=== PATIENT | female | born 1930 | race Caucasian/White ===

== ENCOUNTER 2017-08-18 13:50 | Emergency (ER) | payer OTHER, SELFPAY ==
[~2017-08-18] VITALS: Ht 162.6 cm; Wt 78.9 kg
[~2017-08-18 13:50] MED LIST: ALBU90OI; ALBU90OI INH; ALBU90OI6 INH; ALEN70; ASCO500; ASPI81EC; Atrovent Inha12.9 GM INH; B Complex1 EAC2 PO; BENTYL 10 MG PO; BENTYL PO; BENTYL10 MG PO; BUPR100; BUPR100 PO; BUPR100ER PO; CALCAVITD PO; CALCAVITDA; CALMAGZIN; CALPRATL; CETI10 PO; CIPR500 PO; CIPRO500 MG PO; CLIN150 PO; CODLIVC PO; CYCL0.05OP; CYCL0.05OP BOTHEYES; Calicum 500+D1 EACH PO; Cipro500 MG PO; Cortisporin Ey7.5 ML BOTHEYES; DESO.05TCA TOP; DEX; DICY20 PO; DILTIAZEM; DIPATR; DIPH50; DIPH50 PO; DOCU100 PO; Dicyclomine HCl10 MG PO; Diflucan100 MG PO; ERGO400; ESTRTP VAG; FISH1000 PO; FLUC200 PO; FURO20 PO; FURO40 PO; Flagyl500 MG PO; GARLIC; GUAI100SY; GUAI600T33 PO; GUAPSEER; HYDACE5 PO; HYDGUAL120 PO; HYDR1TAB94 PO; HYOS.125; INDA2.5; INDA2.5 PO; INDAPAMIDE 1.25 MG PO; INDAPAMIDE PO; IPRA.03NI; IPRA.06NI; Indapamide1.25 MG PO; Indapamide2.5 MG PO; KETO10 PO; KLOR-CON; LAVAP17G PO; LEVFLO500; LEVFLO500 PO; LEVOTHYROXINE 0.1 MG; LEVSOD100; LEVSOD100 PO; LIDOCAINE-HYDROC7 GM PR; LISI10; LISI5 PO; LOPE2C PO; MECL12.5 PO; MECL25; MECL25 PO; MECLIZINE; METHYLCELLULOSE; METR500 PO; METRIBP; METRIBP PO; MOMENI; MSM PO; MSM1000 MG PO; MUCINEX DM; MULVITB&C PO; Milk Of Ma400 MG/5 M PO; NAPR250; NASAREL; NASONEX; Norco 5-325 Ta1 EACH PO; ONDA4 PO; ONDA4ODT MM; ONDA8ODT MM; OXYC10TA19 PO; POTA10T PO; POTCHL10ER PO; PRAM.125 PO; PRAM.5 PO; PROCODE120 PO; PROM12.5S; PROM25; PROM25 PO; PROM25S; PROM25S PR; Pataday2.5 ML BOTHEYES; Percocet 5-3251 EACH PO; Phenergan25 M1 PO; RALO60; RANI150; RANI150 PO; RECLAST; RECLAST IV; REQUIP PO; RESTASIS; ROPI.25 PO; ROPI1 PO; RXCLIN PO; RXONDA4ODT MM; TOCO400; TOCO400 PO; TRAM50 PO; VALS80; VICODIN 5-3001 EACH PO; VITAMIN A; VITAMIN B; Vitamin B Comple1 EA PO; XARELTO10 MG PO; [UNRECOGNIZED DRUG - CODE]; [UNRECOGNIZED DRUG - OTHER]; [UNRECOGNIZED DRUG - OTHER]; [UNRECOGNIZED DRUG - OTHER]; [UNRECOGNIZED DRUG - OTHER]
[2017-08-18 14:29] LABS: BASOPHILS ABSOLUTE AUTO 0.03 K/mm3 (0.00-0.23); BASOPHILS PERCENT AUTO 1 % (0-2); EOSINOPHILS ABSOLUTE AUTO 0.04 K/mm3 (0.00-0.68); EOSINOPHILS PERCENT AUTO 1 % (0-6); Hemoglobin 14.2 g/dL (11.5-16.0); IMMATURE GRAN ABSOLUTE AUTO 0.01 K/mm3 (0.00-0.10); IMMATURE GRAN PERCENT AUTO 0 % (0-1); LYMPHOCYTES ABSOLUTE AUTO 0.92 K/mm3 (0.84-5.20); LYMPHOCYTES PERCENT AUTO 26 % (21-46); MONOCYTES ABSOLUTE AUTO 0.19 K/mm3 (0.16-1.47); MONOCYTES PERCENT AUTO 5 % (4-13); Mean Corpuscular HGB 31.8 pg (26.0-34.0); Mean Corpuscular HGB Conc 33.8 g/dL (31.5-36.5); Mean Corpuscular Volume 94 fL (80-100); Mean Platelet Volume 10.5 fL (9.1-12.4); NEUTROPHILS ABSOLUTE AUTO 2.35 K/mm3 (1.96-9.15); NEUTROPHILS PERCENT AUTO 66 % (41-73); Platelet Count 221 K/mm3 (150-400); RDW Coefficient Variation 14.9 % (11.7-14.2); Red Blood Cell Count 4.46 M/mm3 (3.80-5.20); White Blood Cell Count 3.54 K/mm3 (4.00-11.30)
[2017-08-18 14:52] LABS: Alanine Aminotransfer (ALT/SGP 23 U/L (12-78); Albumin, Blood 3.7 g/dL (3.4-5.0); Alk Phos 88 U/L (50-136); Anion Gap 10 mmol/L (6-16); Aspartate Aminotrans (AST/SGOT 21 U/L (12-37); Bilirubin, Total 0.5 mg/dL (0.1-1.0); Blood Urea Nitrogen 18 mg/dL (8-24); Bun/Creatinine Ratio 22.3 (12.0-20.0); CO2, Blood 25 mmol/L (21-32); Calcium, Blood 8.8 mg/dL (8.5-10.1); Chloride, Blood 108 mmol/L (98-108); Creatinine, Blood 0.81 mg/dL (0.40-1.00); Globulin, Blood 3.7 g/dL (2.2-4.0); Glomerular Filtration Rate >60 (60-); Glucose, Blood 91 mg/dL (70-99); Potassium, Blood 3.7 mmol/L (3.5-5.5); Sodium, Blood 143 mmol/L (136-145); Total Protein, Blood 7.4 g/dL (6.4-8.2)
[2017-08-18] MEDS ORDERED: POTA10T PO (15:10)
[2017-08-18] MEDS ORDERED: BUPR100 PO (15:10)
[2017-08-18] MEDS ORDERED: BENTYL10 MG (15:12)
[2017-08-18] MEDS ORDERED: PRAM.5 PO (15:14)
[2017-08-18] MEDS ORDERED: Zofran Odt4 MG PO (15:15)
[2017-08-18] MEDS ORDERED: PROM25S PR (15:16)
[2017-08-18] MEDS ORDERED: XARELTO10 MG PO (15:26)
[2017-08-18] MEDS ORDERED: Flonase 0.05% N16 GM (15:26)
[2017-08-18] MEDS ORDERED: RANI150 PO (15:27)
[2017-08-18] MEDS ORDERED: CYCL0.05OP (15:27)
[2017-08-18] MEDS ORDERED: Cipro500 MG PO (15:58)
[2017-08-18] MEDS ORDERED: Loperamide2 MG PO (15:58)
[2017-08-19] MEDS ORDERED: Flagyl500 MG PO (20:59)
[2017-11-13] MEDS ORDERED: Pepcid40 MG PO (11:00)
[2018-03-03] MEDS ORDERED: BUPR100 PO (10:53)
[2018-03-03] MEDS ORDERED: PRAM.5 PO ×2 (10:56)
[2018-05-09] MEDS ORDERED: EYE VITAMIN PO (10:23)
[2018-05-09] MEDS ORDERED: PROM25 PO (10:23)
[2018-05-09] MEDS ORDERED: SUCRETS SORE THR2 MG PO (10:24)
[2018-05-09] MEDS ORDERED: HYDR1TAB94 PO (10:24)
[2018-05-18] MEDS ORDERED: Zantac150 MG PO (07:06)
[2018-05-25] MEDS ORDERED: Bentyl20 MG PO (06:46)
[2018-05-25] MEDS ORDERED: BUPR100 PO (06:47)
== END 2017-08-18 17:30 | disposition home or self-care (01) ==
LOC: ER 13:50
PROVIDERS: Emergency Medicine
DX: K57.92 Diverticulitis of intestine, part unspecified, without perforation or abscess without bleeding (principal); Z88.8 Allergy status to other drugs, medicaments and biological substances; Z88.0 Allergy status to penicillin; I10 Essential (primary) hypertension; Z88.1 Allergy status to other antibiotic agents; Z88.2 Allergy status to sulfonamides; Z91.040 Latex allergy status; Z91.013 Allergy to seafood; Z79.899 Other long term (current) drug therapy
CPT/HCPCS: 80053; 83690; 85025; 96361; 96365; 96367; 96375; 99283; J0744; J0780; J7030

== ENCOUNTER 2017-08-19 17:14 | Emergency (ER) | payer OTHER, SELFPAY ==
[~2017-08-19] VITALS: Ht 162.6 cm; Wt 79.4 kg
[~2017-08-19 17:14] MED LIST changes: +BENTYL10 MG; +Flonase 0.05% N16 GM; +Loperamide2 MG PO; +Zofran Odt4 MG PO
[2017-08-19 17:54] LABS: BASOPHILS ABSOLUTE AUTO 0.02 K/mm3 (0.00-0.23); BASOPHILS PERCENT AUTO 1 % (0-2); EOSINOPHILS PERCENT AUTO 2 % (0-6); Hematocrit 39.4 % (33.0-51.0); Hemoglobin 13.2 g/dL (11.5-16.0); IMMATURE GRAN ABSOLUTE AUTO 0.01 K/mm3 (0.00-0.10); IMMATURE GRAN PERCENT AUTO 0 % (0-1); LYMPHOCYTES ABSOLUTE AUTO 2.01 K/mm3 (0.84-5.20); LYMPHOCYTES PERCENT AUTO 48 % (21-46); MONOCYTES ABSOLUTE AUTO 0.44 K/mm3 (0.16-1.47); MONOCYTES PERCENT AUTO 11 % (4-13); Mean Corpuscular HGB 31.9 pg (26.0-34.0); Mean Corpuscular HGB Conc 33.5 g/dL (31.5-36.5); Mean Corpuscular Volume 95 fL (80-100); Mean Platelet Volume 10.2 fL (9.1-12.4); NEUTROPHILS ABSOLUTE AUTO 1.61 K/mm3 (1.96-9.15); NEUTROPHILS PERCENT AUTO 38 % (41-73); Platelet Count 221 K/mm3 (150-400); RDW Coefficient Variation 15.3 % (11.7-14.2); RDW Standard Deviation 53.2 fL (35.1-46.3); Red Blood Cell Count 4.14 M/mm3 (3.80-5.20); White Blood Cell Count 4.19 K/mm3 (4.00-11.30)
[2017-08-19 18:19] LABS: Alanine Aminotransfer (ALT/SGP 22 U/L (12-78); Albumin, Blood 3.2 g/dL (3.4-5.0); Albumin/Globulin Ratio 0.9 (0.8-1.8); Alk Phos 76 U/L (50-136); Anion Gap 10 mmol/L (6-16); Aspartate Aminotrans (AST/SGOT 23 U/L (12-37); Bilirubin, Total 0.4 mg/dL (0.1-1.0); Blood Urea Nitrogen 18 mg/dL (8-24); Bun/Creatinine Ratio 19.7 (12.0-20.0); CO2, Blood 23 mmol/L (21-32); Chloride, Blood 110 mmol/L (98-108); Creatinine, Blood 0.92 mg/dL (0.40-1.00); Globulin, Blood 3.7 g/dL (2.2-4.0); Glomerular Filtration Rate >60 (60-); Glucose, Blood 84 mg/dL (70-99); Sodium, Blood 143 mmol/L (136-145); Total Protein, Blood 6.9 g/dL (6.4-8.2)
[2017-08-19] MEDS ORDERED: Flagyl500 MG PO (20:59)
[2017-11-13] MEDS ORDERED: Pepcid40 MG PO (11:00)
[2018-03-03] MEDS ORDERED: BUPR100 PO (10:53)
[2018-03-03] MEDS ORDERED: PRAM.5 PO ×2 (10:56)
[2018-05-09] MEDS ORDERED: PROM25 PO (10:23)
[2018-05-09] MEDS ORDERED: EYE VITAMIN PO (10:23)
[2018-05-09] MEDS ORDERED: SUCRETS SORE THR2 MG PO (10:24)
[2018-05-09] MEDS ORDERED: HYDR1TAB94 PO (10:24)
[2018-05-18] MEDS ORDERED: Zantac150 MG PO (07:06)
[2018-05-25] MEDS ORDERED: Bentyl20 MG PO (06:46)
[2018-05-25] MEDS ORDERED: BUPR100 PO (06:47)
== END 2017-08-19 21:05 | disposition home or self-care (01) ==
LOC: ER 17:14
PROVIDERS: Physician Assistant
DX: K57.92 Diverticulitis of intestine, part unspecified, without perforation or abscess without bleeding (principal); E87.6 Hypokalemia; I10 Essential (primary) hypertension; Z88.1 Allergy status to other antibiotic agents; Z88.0 Allergy status to penicillin; Z88.2 Allergy status to sulfonamides; Z88.6 Allergy status to analgesic agent; Z88.8 Allergy status to other drugs, medicaments and biological substances; Z91.048 Other nonmedicinal substance allergy status; Z91.013 Allergy to seafood; Z79.899 Other long term (current) drug therapy; Z90.710 Acquired absence of both cervix and uterus; Z90.49 Acquired absence of other specified parts of digestive tract
CPT/HCPCS: 36415; 80053; 85025; 96365; 96366; 99283; J7030

== ENCOUNTER 2017-12-21 20:05 | Emergency (ER) | payer OTHER ==
[~2017-12-21] VITALS: Ht 160 cm; Wt 77.6 kg
[~2017-12-21 20:05] MED LIST changes: -Atrovent Inha12.9 GM INH; +IPRAOI INH; +Pepcid40 MG PO
[2017-12-21 21:16] LABS: BASOPHILS ABSOLUTE AUTO 0.04 K/mm3 (0.00-0.23); BASOPHILS PERCENT AUTO 1 % (0-2); EOSINOPHILS ABSOLUTE AUTO 0.03 K/mm3 (0.00-0.68); EOSINOPHILS PERCENT AUTO 1 % (0-6); Hematocrit 38.4 % (33.0-51.0); Hemoglobin 12.9 g/dL (11.5-16.0); IMMATURE GRAN ABSOLUTE AUTO 0.01 K/mm3 (0.00-0.10); IMMATURE GRAN PERCENT AUTO 0 % (0-1); LYMPHOCYTES ABSOLUTE AUTO 1.06 K/mm3 (0.84-5.20); LYMPHOCYTES PERCENT AUTO 25 % (21-46); MONOCYTES ABSOLUTE AUTO 0.63 K/mm3 (0.16-1.47); MONOCYTES PERCENT AUTO 15 % (4-13); Mean Corpuscular HGB 32.2 pg (26.0-34.0); Mean Corpuscular HGB Conc 33.6 g/dL (31.5-36.5); Mean Corpuscular Volume 96 fL (80-100); Mean Platelet Volume 9.9 fL (9.1-12.4); NEUTROPHILS ABSOLUTE AUTO 2.54 K/mm3 (1.96-9.15); NEUTROPHILS PERCENT AUTO 59 % (41-73); Platelet Count 242 K/mm3 (150-400); RDW Coefficient Variation 15.9 % (11.7-14.2); RDW Standard Deviation 56.4 fL (35.1-46.3); Red Blood Cell Count 4.01 M/mm3 (3.80-5.20); White Blood Cell Count 4.31 K/mm3 (4.00-11.30)
[2017-12-21 21:35] LABS: Alanine Aminotransfer (ALT/SGP 23 U/L (12-78); Albumin, Blood 3.1 g/dL (3.4-5.0); Albumin/Globulin Ratio 0.8 (0.8-1.8); Alk Phos 71 U/L (50-136); Anion Gap 8 mmol/L (6-16); Aspartate Aminotrans (AST/SGOT 23 U/L (12-37); Bilirubin, Total 0.4 mg/dL (0.1-1.0); Blood Urea Nitrogen 14 mg/dL (8-24); Bun/Creatinine Ratio 20.5 (12.0-20.0); CO2, Blood 27 mmol/L (21-32); Calcium, Blood 8.4 mg/dL (8.5-10.1); Chloride, Blood 109 mmol/L (98-108); Creatinine, Blood 0.68 mg/dL (0.40-1.00); Globulin, Blood 3.9 g/dL (2.2-4.0); Glomerular Filtration Rate >60 (60-); Glucose, Blood 102 mg/dL (70-99); Potassium, Blood 3.4 mmol/L (3.5-5.5); Sodium, Blood 144 mmol/L (136-145)
[2017-12-21] MEDS ORDERED: Cipro250 MG PO (22:45)
[2017-12-21] MEDS ORDERED: Flagyl500 MG PO (22:45)
== END 2017-12-21 23:17 | disposition home or self-care (01) ==
LOC: ER 20:05
PROVIDERS: Emergency Medicine
DX: K52.9 Noninfective gastroenteritis and colitis, unspecified (principal); I10 Essential (primary) hypertension; Z88.1 Allergy status to other antibiotic agents; Z88.0 Allergy status to penicillin; Z88.2 Allergy status to sulfonamides; Z88.6 Allergy status to analgesic agent; Z91.040 Latex allergy status; Z88.8 Allergy status to other drugs, medicaments and biological substances; Z91.013 Allergy to seafood; Z79.899 Other long term (current) drug therapy
CPT/HCPCS: 36415; 74177; 80053; 83690; 85025; 96360; 96361; 99284; J7120; Q9967

== ENCOUNTER 2017-12-24 09:58 | Inpatient (IN) | payer OTHER ==
[~2017-12-24] VITALS: Ht 160 cm; Wt 75.8 kg
[~2017-12-24 09:58] MED LIST changes: +Atrovent Inha12.9 GM INH; +Cipro250 MG PO; -IPRAOI INH
[2017-12-24] MEDS ORDERED: Indapamide2.5 MG PO (10:25)
[2017-12-24] MEDS ORDERED: FURO20 PO (10:26)
[2017-12-24] MEDS ORDERED: HYDR1TAB94 PO (10:27)
[2017-12-24] MEDS ORDERED: POTCHL10ER PO (10:28)
[2017-12-24] MEDS ORDERED: ROPI.25 PO (10:29)
[2017-12-24] MEDS ORDERED: MECL12.5 PO (10:30)
[2017-12-24] MEDS ORDERED: PROM25 PO (10:31)
[2017-12-24] MEDS ORDERED: CYCL0.05OP BOTHEYES (10:32)
[2017-12-24] MEDS ORDERED: Vitamin B Comple1 EA PO (10:33)
[2017-12-24] MEDS ORDERED: Vitamin E400 UNI4 PO (10:33)
[2017-12-24] MEDS ORDERED: MSM1000 MG PO (10:33)
[2017-12-24 11:07] LABS: BASOPHILS ABSOLUTE AUTO 0.03 K/mm3 (0.00-0.23); BASOPHILS PERCENT AUTO 1 % (0-2); EOSINOPHILS ABSOLUTE AUTO 0.02 K/mm3 (0.00-0.68); EOSINOPHILS PERCENT AUTO 1 % (0-6); Hematocrit 44.7 % (33.0-51.0); Hemoglobin 15.1 g/dL (11.5-16.0); IMMATURE GRAN ABSOLUTE AUTO 0.01 K/mm3 (0.00-0.10); IMMATURE GRAN PERCENT AUTO 0 % (0-1); LYMPHOCYTES ABSOLUTE AUTO 0.54 K/mm3 (0.84-5.20); LYMPHOCYTES PERCENT AUTO 19 % (21-46); MONOCYTES ABSOLUTE AUTO 0.45 K/mm3 (0.16-1.47); MONOCYTES PERCENT AUTO 16 % (4-13); Mean Corpuscular HGB 32.6 pg (26.0-34.0); Mean Corpuscular HGB Conc 33.8 g/dL (31.5-36.5); Mean Corpuscular Volume 97 fL (80-100); NEUTROPHILS ABSOLUTE AUTO 1.85 K/mm3 (1.96-9.15); NEUTROPHILS PERCENT AUTO 64 % (41-73); Platelet Count 276 K/mm3 (150-400); RDW Standard Deviation 57.3 fL (35.1-46.3); Red Blood Cell Count 4.63 M/mm3 (3.80-5.20)
[2017-12-24 11:21] LABS: Anion Gap 8 mmol/L (6-16); Blood Urea Nitrogen 16 mg/dL (8-24); Bun/Creatinine Ratio 20.3 (12.0-20.0); CO2, Blood 27 mmol/L (21-32); Calcium, Blood 9.3 mg/dL (8.5-10.1); Chloride, Blood 107 mmol/L (98-108); Creatinine, Blood 0.79 mg/dL (0.40-1.00); Glomerular Filtration Rate >60 (60-); Glucose, Blood 110 mg/dL (70-99); Potassium, Blood 4.1 mmol/L (3.5-5.5); Sodium, Blood 142 mmol/L (136-145)
[2017-12-24 12:22] LABS: Campylobacter Sp Not Detected (NOT DETECT); Enteroaggregative E. coli-EAEC Not Detected (NOT DETECT); Enterotoxigenic E. coli-ETEC Not Detected (NOT DETECT); Plesiomonas Shigelloides Not Detected (NOT DETECT); Salmonella Sp Not Detected (NOT DETECT); Vibrio Cholerae Not Detected (NOT DETECT); Vibrio Sp Not Detected (NOT DETECT); Yersinia Enterocolitica Not Detected (NOT DETECT)
[2017-12-24 12:23] LABS: Adenovirus F 40/41 Not Detected (NOT DETECT); Astrovirus Not Detected (NOT DETECT); Cryptosporidium Not Detected (NOT DETECT); Cyclospora Cayetanensis Not Detected (NOT DETECT); E. Coli O157 Not Detected (NOT DETECT); Entamoeba Histolytica Not Detected (NOT DETECT); Enteropathogenic E. coli-EPEC Not Detected (NOT DETECT); Giardia Lamblia Not Detected (NOT DETECT); Norovirus GI/GII Not Detected (NOT DETECT); Rotavirus A Not Detected (NOT DETECT); Sapovirus Not Detected (NOT DETECT); Shiga Toxin-prod E. coli-STEC Not Detected (NOT DETECT); Shigella/Enteroin E. coli-EIEC Not Detected (NOT DETECT)
[2017-12-25 04:33] LABS: Bilirubin, Urine Neg (Neg); Blood, Urine Neg (Neg); Glucose Qualitative, Urine Neg (Neg); Ketones, Urine Neg (Neg); Leukocyte Esterase, Urine 3+ (Neg); Nitrite, Urine Neg (Neg); Protein, Urine Neg (Neg); Urobilinogen, Urine NORM (Normal)
[2017-12-25 04:48] LABS: Appearance, Urine Hazy (Clear); Color, Urine Yellow (P-Yellow)
[2017-12-25 04:49] LABS: Bacteria Few /hpf; Red Blood Cells, Urine Not Seen /hpf (0-2); Squamous Epithelial Cells Few /hpf (Few); White Blood Cells, Urine 25-50 /hpf (0-5)
[2017-12-25 05:16] LABS: Hematocrit 36.4 % (33.0-51.0); Hemoglobin 12.1 g/dL (11.5-16.0); Mean Corpuscular HGB 32.9 pg (26.0-34.0); Mean Corpuscular HGB Conc 33.2 g/dL (31.5-36.5); Mean Corpuscular Volume 99 fL (80-100); Mean Platelet Volume 10.1 fL (9.1-12.4); Platelet Count 216 K/mm3 (150-400); RDW Coefficient Variation 16.2 % (11.7-14.2); Red Blood Cell Count 3.68 M/mm3 (3.80-5.20); White Blood Cell Count 3.31 K/mm3 (4.00-11.30)
[2017-12-25 05:38] LABS: Alanine Aminotransfer (ALT/SGP 24 U/L (12-78); Albumin, Blood 2.6 g/dL (3.4-5.0); Albumin/Globulin Ratio 0.8 (0.8-1.8); Alk Phos 54 U/L (50-136); Anion Gap 7 mmol/L (6-16); Aspartate Aminotrans (AST/SGOT 27 U/L (12-37); Bilirubin, Total 0.4 mg/dL (0.1-1.0); Blood Urea Nitrogen 10 mg/dL (8-24); Bun/Creatinine Ratio 14.2 (12.0-20.0); CO2, Blood 24 mmol/L (21-32); Calcium, Blood 7.5 mg/dL (8.5-10.1); Chloride, Blood 113 mmol/L (98-108); Creatinine, Blood 0.71 mg/dL (0.40-1.00); Globulin, Blood 3.2 g/dL (2.2-4.0); Glomerular Filtration Rate >60 (60-); Glucose, Blood 88 mg/dL (70-99); Potassium, Blood 3.5 mmol/L (3.5-5.5); Sodium, Blood 144 mmol/L (136-145); Total Protein, Blood 5.8 g/dL (6.4-8.2)
[2017-12-25 05:49] LABS: BASOPHILS ABSOLUTE MAN 0.03 K/mm3 (0.00-0.23); BASOPHILS PERCENT MAN 1 % (0-2); EOSINOPHILS ABSOLUTE MAN 0.03 K/mm3 (0.00-0.68); EOSINOPHILS PERCENT MAN 1 % (0-6); LYMPHOCYTES % ATYPICAL MANUAL 4 % (0-0); LYMPHOCYTES ABSOLUTE MAN 1.72 K/mm3 (0.84-5.20); LYMPHOCYTES PERCENT MAN 48 % (21-46); MONOCYTES ABSOLUTE MAN 0.19 K/mm3 (0.16-1.47); MONOCYTES PERCENT MAN 6 % (4-13); NEUTROPHILS ABSOLUTE MAN 1.32 K/mm3 (1.96-9.15); SEG NEUTROPHILS PERCENT MAN 40 % (41-73); TOTAL CELLS COUNTED 100
[2017-12-26 05:27] LABS: BASOPHILS ABSOLUTE AUTO 0.02 K/mm3 (0.00-0.23); BASOPHILS PERCENT AUTO 1 % (0-2); EOSINOPHILS ABSOLUTE AUTO 0.07 K/mm3 (0.00-0.68); EOSINOPHILS PERCENT AUTO 2 % (0-6); Hematocrit 35.9 % (33.0-51.0); Hemoglobin 11.9 g/dL (11.5-16.0); IMMATURE GRAN ABSOLUTE AUTO 0.01 K/mm3 (0.00-0.10); IMMATURE GRAN PERCENT AUTO 0 % (0-1); LYMPHOCYTES ABSOLUTE AUTO 1.95 K/mm3 (0.84-5.20); LYMPHOCYTES PERCENT AUTO 45 % (21-46); MONOCYTES ABSOLUTE AUTO 0.46 K/mm3 (0.16-1.47); MONOCYTES PERCENT AUTO 11 % (4-13); Mean Corpuscular HGB Conc 33.1 g/dL (31.5-36.5); Mean Corpuscular Volume 99 fL (80-100); Mean Platelet Volume 10.2 fL (9.1-12.4); NEUTROPHILS ABSOLUTE AUTO 1.79 K/mm3 (1.96-9.15); NEUTROPHILS PERCENT AUTO 42 % (41-73); Platelet Count 232 K/mm3 (150-400); RDW Coefficient Variation 16.1 % (11.7-14.2); RDW Standard Deviation 58.4 fL (35.1-46.3); Red Blood Cell Count 3.61 M/mm3 (3.80-5.20)
[2017-12-26 05:48] LABS: Alanine Aminotransfer (ALT/SGP 24 U/L (12-78); Albumin, Blood 2.6 g/dL (3.4-5.0); Albumin/Globulin Ratio 0.8 (0.8-1.8); Alk Phos 54 U/L (50-136); Anion Gap 6 mmol/L (6-16); Aspartate Aminotrans (AST/SGOT 23 U/L (12-37); Bilirubin, Total 0.2 mg/dL (0.1-1.0); Blood Urea Nitrogen 7 mg/dL (8-24); CO2, Blood 25 mmol/L (21-32); Calcium, Blood 7.4 mg/dL (8.5-10.1); Chloride, Blood 117 mmol/L (98-108); Creatinine, Blood 0.64 mg/dL (0.40-1.00); Globulin, Blood 3.1 g/dL (2.2-4.0); Glomerular Filtration Rate >60 (60-); Glucose, Blood 106 mg/dL (70-99); Magnesium, Blood 1.9 mg/dL (1.6-2.4); Potassium, Blood 3.4 mmol/L (3.5-5.5); Sodium, Blood 148 mmol/L (136-145); Total Protein, Blood 5.7 g/dL (6.4-8.2)
[2017-12-27 05:12] LABS: BASOPHILS ABSOLUTE AUTO 0.05 K/mm3 (0.00-0.23); BASOPHILS PERCENT AUTO 1 % (0-2); EOSINOPHILS PERCENT AUTO 3 % (0-6); Hemoglobin 12.4 g/dL (11.5-16.0); IMMATURE GRAN PERCENT AUTO 0 % (0-1); LYMPHOCYTES ABSOLUTE AUTO 1.95 K/mm3 (0.84-5.20); LYMPHOCYTES PERCENT AUTO 48 % (21-46); MONOCYTES PERCENT AUTO 12 % (4-13); Mean Corpuscular HGB 32.8 pg (26.0-34.0); Mean Corpuscular HGB Conc 33.5 g/dL (31.5-36.5); Mean Corpuscular Volume 98 fL (80-100); Mean Platelet Volume 10.3 fL (9.1-12.4); NEUTROPHILS ABSOLUTE AUTO 1.47 K/mm3 (1.96-9.15); NEUTROPHILS PERCENT AUTO 36 % (41-73); Platelet Count 248 K/mm3 (150-400); RDW Coefficient Variation 15.9 % (11.7-14.2); RDW Standard Deviation 57.4 fL (35.1-46.3); Red Blood Cell Count 3.78 M/mm3 (3.80-5.20); White Blood Cell Count 4.07 K/mm3 (4.00-11.30)
[2017-12-27 05:34] LABS: Alanine Aminotransfer (ALT/SGP 24 U/L (12-78); Albumin, Blood 2.8 g/dL (3.4-5.0); Albumin/Globulin Ratio 0.8 (0.8-1.8); Alk Phos 58 U/L (50-136); Anion Gap 7 mmol/L (6-16); Aspartate Aminotrans (AST/SGOT 23 U/L (12-37); Bilirubin, Total 0.4 mg/dL (0.1-1.0); Blood Urea Nitrogen 8 mg/dL (8-24); Bun/Creatinine Ratio 13.3 (12.0-20.0); CO2, Blood 25 mmol/L (21-32); Chloride, Blood 114 mmol/L (98-108); Globulin, Blood 3.6 g/dL (2.2-4.0); Glomerular Filtration Rate >60 (60-); Glucose, Blood 81 mg/dL (70-99); Potassium, Blood 3.3 mmol/L (3.5-5.5); Sodium, Blood 146 mmol/L (136-145); Total Protein, Blood 6.4 g/dL (6.4-8.2)
[2017-12-28 05:04] LABS: Hematocrit 36.2 % (33.0-51.0); Hemoglobin 12.4 g/dL (11.5-16.0); Mean Corpuscular HGB 32.9 pg (26.0-34.0); Mean Corpuscular HGB Conc 34.3 g/dL (31.5-36.5); Mean Corpuscular Volume 96 fL (80-100); Mean Platelet Volume 10.2 fL (9.1-12.4); Platelet Count 246 K/mm3 (150-400); RDW Standard Deviation 56.5 fL (35.1-46.3); Red Blood Cell Count 3.77 M/mm3 (3.80-5.20); White Blood Cell Count 4.26 K/mm3 (4.00-11.30)
[2017-12-28 05:36] LABS: Albumin, Blood 2.7 g/dL (3.4-5.0); Anion Gap 6 mmol/L (6-16); Blood Urea Nitrogen 15 mg/dL (8-24); Bun/Creatinine Ratio 20.9 (12.0-20.0); CO2, Blood 24 mmol/L (21-32); Calcium, Blood 8.2 mg/dL (8.5-10.1); Chloride, Blood 114 mmol/L (98-108); Creatinine, Blood 0.72 mg/dL (0.40-1.00); Glomerular Filtration Rate >60 (60-); Glucose, Blood 96 mg/dL (70-99); Phosphorus, Blood 3.1 mg/dL (2.5-4.9); Potassium, Blood 3.8 mmol/L (3.5-5.5); Sodium, Blood 144 mmol/L (136-145)
[2017-12-29 08:40] LABS: Albumin, Blood 2.9 g/dL (3.4-5.0); Anion Gap 8 mmol/L (6-16); Blood Urea Nitrogen 13 mg/dL (8-24); Bun/Creatinine Ratio 19.3 (12.0-20.0); CO2, Blood 24 mmol/L (21-32); Calcium, Blood 8.6 mg/dL (8.5-10.1); Chloride, Blood 111 mmol/L (98-108); Creatinine, Blood 0.67 mg/dL (0.40-1.00); Glomerular Filtration Rate >60 (60-); Glucose, Blood 89 mg/dL (70-99); Phosphorus, Blood 3.3 mg/dL (2.5-4.9); Sodium, Blood 143 mmol/L (136-145)
[2017-12-30] MEDS ORDERED: VANCOMYCIN125 MG/2.5 PO (11:28)
[2017-12-30] MEDS ORDERED: SACC250C PO (11:28)
== END 2017-12-30 18:15 | disposition home or self-care (01) | DRG 372 ==
LOC: ER 09:58 → MEDS 13:06
PROVIDERS: Emergency Medicine; Internal Medicine
DX: A04.72 Enterocolitis due to Clostridium difficile, not specified as recurrent (principal); E87.0 Hyperosmolality and hypernatremia; E87.6 Hypokalemia; I10 Essential (primary) hypertension; J44.9 Chronic obstructive pulmonary disease, unspecified; E03.9 Hypothyroidism, unspecified; K21.9 Gastro-esophageal reflux disease without esophagitis; M19.90 Unspecified osteoarthritis, unspecified site; M81.0 Age-related osteoporosis without current pathological fracture; Z88.2 Allergy status to sulfonamides; Z88.8 Allergy status to other drugs, medicaments and biological substances; Z88.6 Allergy status to analgesic agent; Z88.1 Allergy status to other antibiotic agents; Z88.3 Allergy status to other anti-infective agents; Z88.0 Allergy status to penicillin; Z91.013 Allergy to seafood; Z87.891 Personal history of nicotine dependence
CPT/HCPCS: 36415; 80048; 80053; 80069; 81001; 83690; 83735; 85025; 85027; 87086; 87507; 94660; 94760; 94762; 96365; 96367; 99283; J0744; J1644; J2405; J7030

== ENCOUNTER 2018-03-18 12:06 | Emergency (ER) | payer OTHER ==
[~2018-03-18] VITALS: Ht 167.6 cm; Wt 79.4 kg
[~2018-03-18 12:06] MED LIST changes: +SACC250C PO; +VANCOMYCIN125 MG/2.5 PO; +Vitamin E400 UNI4 PO
[2018-03-18] MEDS ORDERED: Flagyl500 MG PO (13:14)
[2018-03-18] MEDS ORDERED: Cipro500 MG PO (13:14)
== END 2018-03-18 13:25 | disposition home or self-care (01) ==
LOC: ER 12:06
DX: K57.92 Diverticulitis of intestine, part unspecified, without perforation or abscess without bleeding (principal); Z88.0 Allergy status to penicillin; Z88.2 Allergy status to sulfonamides; Z88.8 Allergy status to other drugs, medicaments and biological substances; Z91.040 Latex allergy status; Z91.013 Allergy to seafood; Z79.899 Other long term (current) drug therapy; I10 Essential (primary) hypertension; E03.9 Hypothyroidism, unspecified
CPT/HCPCS: 99284

== ENCOUNTER 2018-05-25 19:57 | Inpatient (IN) | payer OTHER ==
[~2018-05-25] VITALS: Ht 160 cm; Wt 68.2 kg
[~2018-05-25 19:57] MED LIST changes: +Bentyl20 MG PO; +EYE VITAMIN PO; +SUCRETS SORE THR2 MG PO; +Zantac150 MG PO
[2018-05-26 10:08] LABS: BASOPHILS ABSOLUTE AUTO 0.02 K/mm3 (0.00-0.23); BASOPHILS PERCENT AUTO 0 % (0-2); EOSINOPHILS ABSOLUTE AUTO 0.26 K/mm3 (0.00-0.68); EOSINOPHILS PERCENT AUTO 5 % (0-6); Hematocrit 29.8 % (33.0-51.0); Hemoglobin 9.7 g/dL (11.5-16.0); IMMATURE GRAN ABSOLUTE AUTO 0.01 K/mm3 (0.00-0.10); IMMATURE GRAN PERCENT AUTO 0 % (0-1); LYMPHOCYTES ABSOLUTE AUTO 0.82 K/mm3 (0.84-5.20); LYMPHOCYTES PERCENT AUTO 15 % (21-46); MONOCYTES ABSOLUTE AUTO 0.64 K/mm3 (0.16-1.47); MONOCYTES PERCENT AUTO 12 % (4-13); Mean Corpuscular HGB 33.3 pg (26.0-34.0); Mean Corpuscular HGB Conc 32.6 g/dL (31.5-36.5); Mean Corpuscular Volume 102 fL (80-100); Mean Platelet Volume 10.5 fL (9.1-12.4); NEUTROPHILS PERCENT AUTO 67 % (41-73); Platelet Count 266 K/mm3 (150-400); RDW Coefficient Variation 14.7 % (11.7-14.2); RDW Standard Deviation 55.8 fL (35.1-46.3); Red Blood Cell Count 2.91 M/mm3 (3.80-5.20); White Blood Cell Count 5.35 K/mm3 (4.00-11.30)
[2018-05-26 12:01] LABS: Anion Gap 10 mmol/L (6-16); Blood Urea Nitrogen 13 mg/dL (8-24); Bun/Creatinine Ratio 17.1 (12.0-20.0); CO2, Blood 25 mmol/L (21-32); Calcium, Blood 7.9 mg/dL (8.5-10.1); Chloride, Blood 109 mmol/L (98-108); Creatinine, Blood 0.76 mg/dL (0.40-1.00); Glomerular Filtration Rate >60 (60-); Glucose, Blood 81 mg/dL (70-99); Potassium, Blood 3.8 mmol/L (3.5-5.5); Sodium, Blood 144 mmol/L (136-145)
[2018-05-26] MEDS ORDERED: PRAM.5 PO (17:24)
[2018-05-26] MEDS ORDERED: SENN187 PO (17:26)
[2018-05-26] MEDS ORDERED: Milk Of Ma400 MG/5 M (17:27)
[2018-05-27 05:32] LABS: BASOPHILS ABSOLUTE AUTO 0.03 K/mm3 (0.00-0.23); BASOPHILS PERCENT AUTO 1 % (0-2); EOSINOPHILS ABSOLUTE AUTO 0.13 K/mm3 (0.00-0.68); EOSINOPHILS PERCENT AUTO 2 % (0-6); Hematocrit 36.8 % (33.0-51.0); IMMATURE GRAN ABSOLUTE AUTO 0.02 K/mm3 (0.00-0.10); IMMATURE GRAN PERCENT AUTO 0 % (0-1); LYMPHOCYTES PERCENT AUTO 16 % (21-46); MONOCYTES ABSOLUTE AUTO 0.64 K/mm3 (0.16-1.47); MONOCYTES PERCENT AUTO 11 % (4-13); Mean Corpuscular HGB 33.5 pg (26.0-34.0); Mean Corpuscular HGB Conc 32.6 g/dL (31.5-36.5); Mean Corpuscular Volume 103 fL (80-100); Mean Platelet Volume 10.4 fL (9.1-12.4); NEUTROPHILS ABSOLUTE AUTO 4.29 K/mm3 (1.96-9.15); NEUTROPHILS PERCENT AUTO 70 % (41-73); Platelet Count 287 K/mm3 (150-400); RDW Coefficient Variation 14.7 % (11.7-14.2); RDW Standard Deviation 56.2 fL (35.1-46.3); Red Blood Cell Count 3.58 M/mm3 (3.80-5.20); White Blood Cell Count 6.11 K/mm3 (4.00-11.30)
[2018-05-27 06:08] LABS: Anion Gap 10 mmol/L (6-16); Blood Urea Nitrogen 10 mg/dL (8-24); Bun/Creatinine Ratio 13.3 (12.0-20.0); CO2, Blood 25 mmol/L (21-32); Calcium, Blood 7.6 mg/dL (8.5-10.1); Chloride, Blood 107 mmol/L (98-108); Creatinine, Blood 0.75 mg/dL (0.40-1.00); Glomerular Filtration Rate >60 (60-); Glucose, Blood 75 mg/dL (70-99); Potassium, Blood 3.6 mmol/L (3.5-5.5); Sodium, Blood 142 mmol/L (136-145)
[2018-05-28 05:25] LABS: BASOPHILS ABSOLUTE AUTO 0.04 K/mm3 (0.00-0.23); BASOPHILS PERCENT AUTO 1 % (0-2); EOSINOPHILS ABSOLUTE AUTO 0.36 K/mm3 (0.00-0.68); EOSINOPHILS PERCENT AUTO 5 % (0-6); Hematocrit 33.9 % (33.0-51.0); Hemoglobin 11.4 g/dL (11.5-16.0); IMMATURE GRAN ABSOLUTE AUTO 0.04 K/mm3 (0.00-0.10); IMMATURE GRAN PERCENT AUTO 1 % (0-1); LYMPHOCYTES ABSOLUTE AUTO 1.11 K/mm3 (0.84-5.20); LYMPHOCYTES PERCENT AUTO 16 % (21-46); MONOCYTES ABSOLUTE AUTO 0.82 K/mm3 (0.16-1.47); MONOCYTES PERCENT AUTO 12 % (4-13); Mean Corpuscular HGB 33.1 pg (26.0-34.0); Mean Corpuscular HGB Conc 33.6 g/dL (31.5-36.5); Mean Platelet Volume 10.4 fL (9.1-12.4); NEUTROPHILS ABSOLUTE AUTO 4.77 K/mm3 (1.96-9.15); NEUTROPHILS PERCENT AUTO 67 % (41-73); Platelet Count 262 K/mm3 (150-400); RDW Coefficient Variation 14.4 % (11.7-14.2); RDW Standard Deviation 52.4 fL (35.1-46.3); Red Blood Cell Count 3.44 M/mm3 (3.80-5.20); White Blood Cell Count 7.14 K/mm3 (4.00-11.30)
[2018-05-28 05:26] LABS: Mean Corpuscular Volume 99 fL (80-100)
[2018-05-28 05:52] LABS: Alanine Aminotransfer (ALT/SGP 14 U/L (12-78); Albumin, Blood 1.7 g/dL (3.4-5.0); Albumin/Globulin Ratio 0.5 (0.8-1.8); Alk Phos 49 U/L (50-136); Anion Gap 7 mmol/L (6-16); Aspartate Aminotrans (AST/SGOT 12 U/L (12-37); Blood Urea Nitrogen 15 mg/dL (8-24); Bun/Creatinine Ratio 24.8 (12.0-20.0); CO2, Blood 28 mmol/L (21-32); Calcium, Blood 7.4 mg/dL (8.5-10.1); Chloride, Blood 104 mmol/L (98-108); Creatinine, Blood 0.61 mg/dL (0.40-1.00); Globulin, Blood 3.4 g/dL (2.2-4.0); Glomerular Filtration Rate >60 (60-); Glucose, Blood 132 mg/dL (70-99); Magnesium, Blood 2.4 mg/dL (1.6-2.4); Phosphorus, Blood 2.6 mg/dL (2.5-4.9); Potassium, Blood 3.4 mmol/L (3.5-5.5); Sodium, Blood 139 mmol/L (136-145); Total Protein, Blood 5.1 g/dL (6.4-8.2)
[2018-05-28 05:54] LABS: Bilirubin, Total 0.3 mg/dL (0.1-1.0)
[2018-05-29 06:03] LABS: BASOPHILS ABSOLUTE AUTO 0.04 K/mm3 (0.00-0.23); BASOPHILS PERCENT AUTO 1 % (0-2); EOSINOPHILS ABSOLUTE AUTO 0.42 K/mm3 (0.00-0.68); EOSINOPHILS PERCENT AUTO 7 % (0-6); Hematocrit 37.8 % (33.0-51.0); Hemoglobin 12.7 g/dL (11.5-16.0); IMMATURE GRAN ABSOLUTE AUTO 0.04 K/mm3 (0.00-0.10); IMMATURE GRAN PERCENT AUTO 1 % (0-1); LYMPHOCYTES PERCENT AUTO 21 % (21-46); MONOCYTES ABSOLUTE AUTO 0.69 K/mm3 (0.16-1.47); MONOCYTES PERCENT AUTO 11 % (4-13); Mean Corpuscular HGB 32.5 pg (26.0-34.0); Mean Corpuscular HGB Conc 33.6 g/dL (31.5-36.5); Mean Corpuscular Volume 97 fL (80-100); Mean Platelet Volume 10.1 fL (9.1-12.4); NEUTROPHILS ABSOLUTE AUTO 3.65 K/mm3 (1.96-9.15); NEUTROPHILS PERCENT AUTO 59 % (41-73); Platelet Count 315 K/mm3 (150-400); RDW Standard Deviation 50.1 fL (35.1-46.3); Red Blood Cell Count 3.91 M/mm3 (3.80-5.20); White Blood Cell Count 6.14 K/mm3 (4.00-11.30)
[2018-05-29 06:21] LABS: Anion Gap 9 mmol/L (6-16); Blood Urea Nitrogen 15 mg/dL (8-24); Bun/Creatinine Ratio 27.5 (12.0-20.0); CO2, Blood 28 mmol/L (21-32); Calcium, Blood 7.9 mg/dL (8.5-10.1); Chloride, Blood 104 mmol/L (98-108); Creatinine, Blood 0.55 mg/dL (0.40-1.00); Glomerular Filtration Rate >60 (60-); Glucose, Blood 106 mg/dL (70-99); Magnesium, Blood 2.5 mg/dL (1.6-2.4); Phosphorus, Blood 3.3 mg/dL (2.5-4.9); Potassium, Blood 3.6 mmol/L (3.5-5.5); Sodium, Blood 141 mmol/L (136-145)
[2018-05-30 07:29] LABS: Anion Gap 8 mmol/L (6-16); Blood Urea Nitrogen 15 mg/dL (8-24); CO2, Blood 29 mmol/L (21-32); Calcium, Blood 7.9 mg/dL (8.5-10.1); Chloride, Blood 103 mmol/L (98-108); Creatinine, Blood 0.63 mg/dL (0.40-1.00); Glomerular Filtration Rate >60 (60-); Glucose, Blood 118 mg/dL (70-99); Magnesium, Blood 2.6 mg/dL (1.6-2.4); Phosphorus, Blood 2.5 mg/dL (2.5-4.9); Potassium, Blood 3.4 mmol/L (3.5-5.5); Sodium, Blood 140 mmol/L (136-145)
[2018-05-30 22:18] LABS: Source, Urine Catheter
[2018-05-30 22:21] LABS: Appearance, Urine Hazy (Clear); Bilirubin, Urine Neg (Neg); Blood, Urine Neg (Neg); Color, Urine Yellow (P-Yellow); Glucose Qualitative, Urine Neg (Neg); Ketones, Urine Neg (Neg); Leukocyte Esterase, Urine Neg (Neg); Nitrite, Urine Neg (Neg); Protein, Urine 1+ (Neg); Urobilinogen, Urine NORM (Normal)
[2018-05-30 22:30] LABS: Amorphous Light (0-Heavy); Bacteria Mod /hpf; Red Blood Cells, Urine 0-2 /hpf (0-2); Squamous Epithelial Cells Rare /hpf (Few)
[2018-05-31 08:01] LABS: BASOPHILS ABSOLUTE AUTO 0.06 K/mm3 (0.00-0.23); BASOPHILS PERCENT AUTO 1 % (0-2); EOSINOPHILS PERCENT AUTO 7 % (0-6); Hemoglobin 11.6 g/dL (11.5-16.0); IMMATURE GRAN ABSOLUTE AUTO 0.03 K/mm3 (0.00-0.10); IMMATURE GRAN PERCENT AUTO 1 % (0-1); LYMPHOCYTES ABSOLUTE AUTO 1.26 K/mm3 (0.84-5.20); LYMPHOCYTES PERCENT AUTO 22 % (21-46); MONOCYTES ABSOLUTE AUTO 0.75 K/mm3 (0.16-1.47); MONOCYTES PERCENT AUTO 13 % (4-13); Mean Corpuscular HGB 32.7 pg (26.0-34.0); Mean Corpuscular HGB Conc 33.1 g/dL (31.5-36.5); Mean Corpuscular Volume 99 fL (80-100); NEUTROPHILS ABSOLUTE AUTO 3.13 K/mm3 (1.96-9.15); NEUTROPHILS PERCENT AUTO 56 % (41-73); Platelet Count 336 K/mm3 (150-400); RDW Coefficient Variation 14.2 % (11.7-14.2); RDW Standard Deviation 51.5 fL (35.1-46.3); Red Blood Cell Count 3.55 M/mm3 (3.80-5.20); White Blood Cell Count 5.63 K/mm3 (4.00-11.30)
[2018-05-31 08:29] LABS: Anion Gap 4 mmol/L (6-16); Blood Urea Nitrogen 17 mg/dL (8-24); Bun/Creatinine Ratio 29.9 (12.0-20.0); CO2, Blood 32 mmol/L (21-32); Calcium, Blood 7.8 mg/dL (8.5-10.1); Chloride, Blood 104 mmol/L (98-108); Creatinine, Blood 0.57 mg/dL (0.40-1.00); Glomerular Filtration Rate >60 (60-); Glucose, Blood 109 mg/dL (70-99); Sodium, Blood 140 mmol/L (136-145)
[2018-05-31 08:30] LABS: Potassium, Blood 5.5 mmol/L (3.5-5.5)
[2018-06-01 04:26] LABS: BASOPHILS ABSOLUTE AUTO 0.08 K/mm3 (0.00-0.23); BASOPHILS PERCENT AUTO 1 % (0-2); EOSINOPHILS ABSOLUTE AUTO 0.66 K/mm3 (0.00-0.68); EOSINOPHILS PERCENT AUTO 9 % (0-6); Hemoglobin 11.9 g/dL (11.5-16.0); IMMATURE GRAN ABSOLUTE AUTO 0.05 K/mm3 (0.00-0.10); IMMATURE GRAN PERCENT AUTO 1 % (0-1); LYMPHOCYTES PERCENT AUTO 29 % (21-46); MONOCYTES ABSOLUTE AUTO 0.96 K/mm3 (0.16-1.47); MONOCYTES PERCENT AUTO 13 % (4-13); Mean Corpuscular HGB 33.3 pg (26.0-34.0); Mean Corpuscular HGB Conc 33.1 g/dL (31.5-36.5); Mean Corpuscular Volume 101 fL (80-100); Mean Platelet Volume 9.8 fL (9.1-12.4); NEUTROPHILS ABSOLUTE AUTO 3.42 K/mm3 (1.96-9.15); NEUTROPHILS PERCENT AUTO 47 % (41-73); Platelet Count 327 K/mm3 (150-400); RDW Coefficient Variation 13.9 % (11.7-14.2); RDW Standard Deviation 51.8 fL (35.1-46.3); Red Blood Cell Count 3.57 M/mm3 (3.80-5.20); White Blood Cell Count 7.27 K/mm3 (4.00-11.30)
[2018-06-01 04:45] LABS: Anion Gap 7 mmol/L (6-16); Blood Urea Nitrogen 21 mg/dL (8-24); Bun/Creatinine Ratio 36.6 (12.0-20.0); CO2, Blood 33 mmol/L (21-32); Calcium, Blood 7.5 mg/dL (8.5-10.1); Chloride, Blood 105 mmol/L (98-108); Creatinine, Blood 0.57 mg/dL (0.40-1.00); Glomerular Filtration Rate >60 (60-); Glucose, Blood 107 mg/dL (70-99); Potassium, Blood 3.3 mmol/L (3.5-5.5); Sodium, Blood 145 mmol/L (136-145); Triglycerides 143 mg/dL (30-160)
[2018-06-01 10:40] LABS: International Normalized Ratio 0.92; Prothrombin Time Results 9.5 Sec (9.7-11.5)
[2018-06-02 06:45] LABS: BASOPHILS ABSOLUTE AUTO 0.08 K/mm3 (0.00-0.23); BASOPHILS PERCENT AUTO 1 % (0-2); EOSINOPHILS ABSOLUTE AUTO 0.77 K/mm3 (0.00-0.68); EOSINOPHILS PERCENT AUTO 10 % (0-6); Hematocrit 36.8 % (33.0-51.0); Hemoglobin 12.1 g/dL (11.5-16.0); IMMATURE GRAN ABSOLUTE AUTO 0.05 K/mm3 (0.00-0.10); IMMATURE GRAN PERCENT AUTO 1 % (0-1); LYMPHOCYTES ABSOLUTE AUTO 1.52 K/mm3 (0.84-5.20); LYMPHOCYTES PERCENT AUTO 21 % (21-46); MONOCYTES ABSOLUTE AUTO 0.96 K/mm3 (0.16-1.47); MONOCYTES PERCENT AUTO 13 % (4-13); Mean Corpuscular HGB 33.5 pg (26.0-34.0); Mean Corpuscular HGB Conc 32.9 g/dL (31.5-36.5); Mean Corpuscular Volume 102 fL (80-100); NEUTROPHILS ABSOLUTE AUTO 3.99 K/mm3 (1.96-9.15); NEUTROPHILS PERCENT AUTO 54 % (41-73); Platelet Count 331 K/mm3 (150-400); RDW Coefficient Variation 14.1 % (11.7-14.2); RDW Standard Deviation 53.4 fL (35.1-46.3); Red Blood Cell Count 3.61 M/mm3 (3.80-5.20); White Blood Cell Count 7.37 K/mm3 (4.00-11.30)
[2018-06-02 06:58] LABS: Anion Gap 7 mmol/L (6-16); Blood Urea Nitrogen 26 mg/dL (8-24); Bun/Creatinine Ratio 47.7 (12.0-20.0); CO2, Blood 31 mmol/L (21-32); Calcium, Blood 7.4 mg/dL (8.5-10.1); Chloride, Blood 106 mmol/L (98-108); Creatinine, Blood 0.55 mg/dL (0.40-1.00); Glomerular Filtration Rate >60 (60-); Glucose, Blood 116 mg/dL (70-99); Potassium, Blood 3.4 mmol/L (3.5-5.5); Sodium, Blood 144 mmol/L (136-145)
[2018-06-04 06:36] LABS: BASOPHILS ABSOLUTE AUTO 0.07 K/mm3 (0.00-0.23); BASOPHILS PERCENT AUTO 1 % (0-2); EOSINOPHILS ABSOLUTE AUTO 0.51 K/mm3 (0.00-0.68); EOSINOPHILS PERCENT AUTO 7 % (0-6); Hematocrit 37.8 % (33.0-51.0); Hemoglobin 12.4 g/dL (11.5-16.0); IMMATURE GRAN ABSOLUTE AUTO 0.05 K/mm3 (0.00-0.10); IMMATURE GRAN PERCENT AUTO 1 % (0-1); LYMPHOCYTES ABSOLUTE AUTO 1.63 K/mm3 (0.84-5.20); LYMPHOCYTES PERCENT AUTO 22 % (21-46); MONOCYTES ABSOLUTE AUTO 0.91 K/mm3 (0.16-1.47); MONOCYTES PERCENT AUTO 12 % (4-13); Mean Corpuscular HGB 32.8 pg (26.0-34.0); Mean Corpuscular HGB Conc 32.8 g/dL (31.5-36.5); Mean Corpuscular Volume 100 fL (80-100); Mean Platelet Volume 10.2 fL (9.1-12.4); NEUTROPHILS ABSOLUTE AUTO 4.39 K/mm3 (1.96-9.15); NEUTROPHILS PERCENT AUTO 58 % (41-73); Platelet Count 358 K/mm3 (150-400); RDW Coefficient Variation 14.2 % (11.7-14.2); RDW Standard Deviation 52.1 fL (35.1-46.3); Red Blood Cell Count 3.78 M/mm3 (3.80-5.20); White Blood Cell Count 7.56 K/mm3 (4.00-11.30)
[2018-06-04 06:48] LABS: Anion Gap 7 mmol/L (6-16); Blood Urea Nitrogen 32 mg/dL (8-24); Bun/Creatinine Ratio 54.5 (12.0-20.0); CO2, Blood 34 mmol/L (21-32); Chloride, Blood 101 mmol/L (98-108); Creatinine, Blood 0.59 mg/dL (0.40-1.00); Glomerular Filtration Rate >60 (60-); Glucose, Blood 112 mg/dL (70-99); Potassium, Blood 2.9 mmol/L (3.5-5.5); Sodium, Blood 142 mmol/L (136-145)
[2018-06-06 06:36] LABS: BASOPHILS ABSOLUTE AUTO 0.08 K/mm3 (0.00-0.23); BASOPHILS PERCENT AUTO 1 % (0-2); EOSINOPHILS ABSOLUTE AUTO 0.65 K/mm3 (0.00-0.68); EOSINOPHILS PERCENT AUTO 9 % (0-6); Hematocrit 36.8 % (33.0-51.0); Hemoglobin 12.3 g/dL (11.5-16.0); IMMATURE GRAN ABSOLUTE AUTO 0.03 K/mm3 (0.00-0.10); IMMATURE GRAN PERCENT AUTO 0 % (0-1); LYMPHOCYTES ABSOLUTE AUTO 1.92 K/mm3 (0.84-5.20); LYMPHOCYTES PERCENT AUTO 28 % (21-46); MONOCYTES ABSOLUTE AUTO 0.86 K/mm3 (0.16-1.47); MONOCYTES PERCENT AUTO 12 % (4-13); Mean Corpuscular HGB 33.1 pg (26.0-34.0); Mean Corpuscular HGB Conc 33.4 g/dL (31.5-36.5); Mean Corpuscular Volume 99 fL (80-100); NEUTROPHILS ABSOLUTE AUTO 3.42 K/mm3 (1.96-9.15); NEUTROPHILS PERCENT AUTO 49 % (41-73); Platelet Count 336 K/mm3 (150-400); RDW Coefficient Variation 13.9 % (11.7-14.2); RDW Standard Deviation 50.7 fL (35.1-46.3); Red Blood Cell Count 3.72 M/mm3 (3.80-5.20); White Blood Cell Count 6.96 K/mm3 (4.00-11.30)
[2018-06-06 06:51] LABS: Anion Gap 6 mmol/L (6-16); Blood Urea Nitrogen 25 mg/dL (8-24); Bun/Creatinine Ratio 44.2 (12.0-20.0); CO2, Blood 32 mmol/L (21-32); Calcium, Blood 7.9 mg/dL (8.5-10.1); Chloride, Blood 101 mmol/L (98-108); Creatinine, Blood 0.57 mg/dL (0.40-1.00); Glomerular Filtration Rate >60 (60-); Glucose, Blood 105 mg/dL (70-99); Potassium, Blood 3.3 mmol/L (3.5-5.5); Sodium, Blood 139 mmol/L (136-145)
[2018-06-08 06:43] LABS: Anion Gap 9 mmol/L (6-16); Blood Urea Nitrogen 29 mg/dL (8-24); Bun/Creatinine Ratio 48.8 (12.0-20.0); CO2, Blood 26 mmol/L (21-32); Calcium, Blood 7.9 mg/dL (8.5-10.1); Chloride, Blood 108 mmol/L (98-108); Creatinine, Blood 0.59 mg/dL (0.40-1.00); Glomerular Filtration Rate >60 (60-); Glucose, Blood 91 mg/dL (70-99); Potassium, Blood 4.2 mmol/L (3.5-5.5); Sodium, Blood 143 mmol/L (136-145); Triglycerides 242 mg/dL (30-160)
[2018-06-11] MEDS ORDERED: HYDR1TAB94 PO (12:30)
== END 2018-06-11 14:17 | disposition home health service (06) | DRG 330 ==
LOC: ER 19:57 → ERHOLD 05-26 02:12 → SURS 05-26 02:12
PROVIDERS: Surgery
PROC: 0D1B0Z4 Bypass Ileum to Cutaneous, Open Approach (ICD-10-PCS; principal; 2018-05-26 12:15)
PROC: 02HV33Z Insertion of Infusion Device into Superior Vena Cava, Percutaneous Approach (ICD-10-PCS; 2018-05-31)
PROC: B548ZZA Ultrasonography of Superior Vena Cava, Guidance (ICD-10-PCS; 2018-05-31)
DX: K91.89 Other postprocedural complications and disorders of digestive system (principal); T81.43XA Infection following a procedure, organ and space surgical site, initial encounter; K56.7 Ileus, unspecified; K68.11 Postprocedural retroperitoneal abscess; N73.8 Other specified female pelvic inflammatory diseases; I10 Essential (primary) hypertension; G47.33 Obstructive sleep apnea (adult) (pediatric); Z90.49 Acquired absence of other specified parts of digestive tract; Z79.899 Other long term (current) drug therapy; Z88.1 Allergy status to other antibiotic agents; Z88.2 Allergy status to sulfonamides; Z88.0 Allergy status to penicillin; Z88.6 Allergy status to analgesic agent; Z88.8 Allergy status to other drugs, medicaments and biological substances; Z91.040 Latex allergy status; Z91.013 Allergy to seafood; Z90.710 Acquired absence of both cervix and uterus; Z90.722 Acquired absence of ovaries, bilateral; Z90.79 Acquired absence of other genital organ(s)
CPT/HCPCS: 36415; 36569; 51701; 51702; 72192; 74019; 74176; 74177; 74270; 80048; 80053; 81001; 82947; 83735; 84100; 84132; 84478; 85025; 85610; 87086; 87106; 94640; 94760; 96361; 96374; 96375; 97110; 97116; 97162; 97166; 97530; 97535; 99285-25; C1751; G8978; G8979; G8987; G8988; J0330; J0610; J0780; J1170; J1335; J1650; J2185; J2370; J2405; J2710; J3010; J3475; J3480; J7030; J7050; J7120; J7131; Q0163; Q9967

== ENCOUNTER 2018-09-09 10:47 | Emergency (ER) | payer OTHER ==
[~2018-09-09] VITALS: Ht 162.6 cm; Wt 68.0 kg
[~2018-09-09 10:47] MED LIST changes: +ALLEGRA ALLERG180 MG PO; +ARNICA LG1 GM TOP; +Allergy Medicat25 MG PO; +Apple Cider Vi300 MG TOP; +BIOFREEZE118 ML TOP; +CHOL10002 PO; +Garlic X400 MG PO; +HYDPRA60 TOP; +KENALOG100 GM TOP; +Ketoconazole15 GM TOP; +Milk Of Ma400 MG/5 M; +Pedi-Dri 100,0060 GM TOP; +SENN187 PO; +VITAMIN B122500 MC1 PO; +[UNRECOGNIZED DRUG - OTHER] PO; +[UNRECOGNIZED DRUG - OTHER] TOP; +[UNRECOGNIZED DRUG - OTHER] TOP
== END 2018-09-09 11:25 | disposition home or self-care (01) ==
LOC: ER 10:47
DX: S29.011A Strain of muscle and tendon of front wall of thorax, initial encounter (principal); X58.XXXA Exposure to other specified factors, initial encounter; Z88.0 Allergy status to penicillin; Z88.8 Allergy status to other drugs, medicaments and biological substances; Z88.2 Allergy status to sulfonamides; Z91.040 Latex allergy status; Z91.013 Allergy to seafood; Z79.899 Other long term (current) drug therapy; I10 Essential (primary) hypertension
CPT/HCPCS: 99283

== ENCOUNTER 2018-09-12 06:08 | Inpatient (IN) | payer OTHER ==
[~2018-09-12] VITALS: Ht 160 cm; Wt 62.9 kg
--- NOTE | 2018-09-12 06:49 | NUR ---
PT ADMITTED TO [facility]. AGREES WITH PLANNED SURGER. MEDS, ALLERGIES, AND HX REVIEWD. LUNG SOUNDS CLEAR.
--- NOTE | 2018-09-12 08:00 | NUR ---
09/12/18 0800 Isabel White PLACED BY [facility] STUDENT, SUPERVISED BY Zuri KOLB RN
--- NOTE | 2018-09-12 10:28 | NUR ---
RECEIVED REPORT FROM ARLEY Figueroa RN. PTATIENT AWAKE AND ORIENTED. ABDOMINAL DRESSING CDI.
--- NOTE | 2018-09-12 13:55 | NUR ---
The patient and her family (daughter and daughter in law) gave me permission to assist in her care tomorrow (09-13-18).
--- NOTE | 2018-09-12 19:07 | NUR ---
SUMMARY POD #0 ILEOSTOMY TAKE DOWN. PT HAS DONE WELL SINCE ADMISSION TO THE FLOOR. PT IS TOLERATING CLEAR FLUID INTAKE WITH NO NAUSEA. LR INFUSING @ 75 ML/HR. PO NORCO GIVEN FOR PAIN. PT IS ON ROOM AIR. IS/ EDUCATION PROVIDED, PT DEMONSTRATED. PT ALSO ENCOURAGED TO TCDB EVERY HR WHILE AWAKE. PT REPORTS MULTIPLE FOOD ALLERGIES. OPERATIONS SECTION MANAGER HAS BEEN IN TO SPEAK WITH PT AND FAMILY. DRSG REMAINS C/D/I, BOWEL TONES HYPOACTIVE. REPORT GIVEN TO NOC RN. CALL LIGHT IN REACH. FAMILY AT BEDSIDE.
--- NOTE | 2018-09-12 21:50 | NUR ---
permission gave to assist in care on 09/12/2018.
[2018-09-13 05:39] LABS: BASOPHILS ABSOLUTE AUTO 0.02 K/mm3 (0.00-0.23); BASOPHILS PERCENT AUTO 0 % (0-2); EOSINOPHILS ABSOLUTE AUTO 0.04 K/mm3 (0.00-0.68); EOSINOPHILS PERCENT AUTO 1 % (0-6); Hemoglobin 12.4 g/dL (11.5-16.0); IMMATURE GRAN ABSOLUTE AUTO 0.01 K/mm3 (0.00-0.10); IMMATURE GRAN PERCENT AUTO 0 % (0-1); LYMPHOCYTES ABSOLUTE AUTO 0.96 K/mm3 (0.84-5.20); LYMPHOCYTES PERCENT AUTO 18 % (21-46); MONOCYTES ABSOLUTE AUTO 0.39 K/mm3 (0.16-1.47); MONOCYTES PERCENT AUTO 7 % (4-13); Mean Corpuscular HGB 33.6 pg (26.0-34.0); Mean Corpuscular HGB Conc 33.5 g/dL (31.5-36.5); Mean Corpuscular Volume 100 fL (80-100); NEUTROPHILS ABSOLUTE AUTO 3.92 K/mm3 (1.96-9.15); NEUTROPHILS PERCENT AUTO 73 % (41-73); Platelet Count 218 K/mm3 (150-400); RDW Coefficient Variation 13.9 % (11.7-14.2); RDW Standard Deviation 51.4 fL (35.1-46.3); Red Blood Cell Count 3.69 M/mm3 (3.80-5.20); White Blood Cell Count 5.34 K/mm3 (4.00-11.30)
[2018-09-13 05:56] LABS: Bun/Creatinine Ratio 11.4 (12.0-20.0); Calcium, Blood 8.2 mg/dL (8.5-10.1); Creatinine, Blood 1.14 mg/dL (0.40-1.00); Potassium, Blood 4.1 mmol/L (3.5-5.5)
--- NOTE | 2018-09-13 06:31 | NUR ---
LYING IN SEMI FOWLERS WITH EYES CLOSED. PAIN MED EFFECTIVE, DENIES FURTHER PAIN AT THIS TIME. REPOSITIONED FOR COMFORT. DRESSING TO RLQ IS C/D/I. DENIES FUTHER NEEDS AT THIS TIME. SAFETY MEASURES IN PLACE. WILL GIVE HAND OFF TO ONCOMING SHIFT USING SBAR.
--- NOTE | 2018-09-13 07:00 | NUR ---
REPORT FROM LEONIE COX. ASSUMED PT CARE.
--- NOTE | 2018-09-13 07:25 | NUR ---
PT ACCIDENTALLY SPILLED WATER ON HERSELF AND LINENS. ICE PACK APPEARED TO BE LEAKING. PT ASSISTED UP TO CHAIR. GOWN AND BED LINENS CHANGED. PT NAUSEAS WITH ACTIVITY. MOANS OCCASSIONALY. HOT TEA PROVIDED PER PT REQUEST. WILL PROVIDE PAIN AND NAUSEA MEDS.
--- NOTE | 2018-09-13 07:39 | NUR ---
PT MEDICATED WITH ZOFRAN AND NORCO PER ORDERS. PT SITTING IN CHAIR. ALERT AND ORIENTED. CALL LIGHT IN REACH.
--- NOTE | 2018-09-13 08:26 | NUR ---
PT APPEARS TO BE SLEEPING IN CHAIR. NADN. CALL LIGHT IN REACH.
--- NOTE | 2018-09-13 10:45 | NUR ---
DR MURRAY TO ROOM FOR RE-EVAL AND UPDATE. DRESSING TO ABD CHANGED, REPACKED WITH DRY GAUZE. TAPE PLACED. PT JORJE WELL.
--- NOTE | 2018-09-13 13:21 | NUR ---
PT EATING LUNCH. GALO VERMA. STATES SHES A LITTLE NAUSEATED. LOVENOX GIVEN PER SEP.
--- NOTE | 2018-09-13 14:23 | NUR ---
PT MEDICATED WITH ZOFRAN AND NORCO PER EMAR. ICED TEA PROVIDED TO PT.
--- NOTE | 2018-09-13 15:15 | NUR ---
PT APPEARS TO BE SLEEPING. CALL LIGHT IN REACH. SOFT MUSIC ON TV. WILL CONT TO MONITOR.
--- NOTE | 2018-09-13 17:52 | NUR ---
PT APPEARS TO BE RESTING. SOUP AT BEDSIDE. NADN. CALL LIGHT IN PT LAP.
--- NOTE | 2018-09-13 18:38 | NUR ---
PT FAMILY TO ROOM. HEATED UP PT BROTH, CUP OF ICE CHIPS PROVIDED. PT C/O LEGS BURNING SOME, ASKED FOR SOCKS TO BE REMOVED. CALL LIGHT IN REACH.
--- NOTE | 2018-09-14 | NUR ---
14FR NG TUBE INSERTED PER MD ORDERS. PLACEMENT VERIFIED BY AIR BILUS AND ASPIRATIONS, GREEN TINGED THICK CLEAR FLUID DRAINING TO CANISTER CONNECED TO LIWS. TOLERATED WELL. SAFETY MEASURES IN PLACE. WILL CONTINUE TO MONITOR.
--- NOTE | 2018-09-14 02:00 | NUR ---
FLUID FROM NG TUBE HAS CHANGED TO BROWN/DARK RED IN COLOR. NO FURTHER CHANGE NOTED AT THIS TIME. SAFETY MEASURES IN PLACE. WILL CONTINUE TO MONITOR.
--- NOTE | 2018-09-14 05:44 | NUR ---
PT C/O N/V. 400ML GREEN/BROWN VOMIT NOTED IN EMESIS BAG. ZOFRAN GIVEN PER MD ORDERS, SUCTION HEAD REPLACED. PT BACK ON LIWS. REPOSITIONED TO COMFORT. DENIES FURTHER NEEDS AT THIS TIME. SAFETY MEASURES IN PLACE. WILL CONTINUE TO MONITOR.
--- NOTE | 2018-09-14 10:27 | NUR ---
pt recieved bed bath, oral care, and linen change at 10:00.
--- NOTE | 2018-09-14 11:57 | NUR ---
ng PATIENT REPORTS ABD FEELING MORE DISTENDED AND SOME NAUSEA, NG FLUSHED AND RETURN OF BROWN LIQUID INCREASED. RE CHECKED PATIENT IN 20 MIN AND SHE REPORTS NAUSEA HAS DECREASED
--- NOTE | 2018-09-14 15:46 | NUR ---
PAS PADDING PLACED UNDER PAS STOCKINGS AND PATIENT AGREED TO WEAR. PATIENT TELLS ME SHE ASKED THEY BE TAKEN OFF THEY CAUSED HER LEGS TO ITCH.
--- NOTE | 2018-09-14 16:06 | NUR ---
Patient has given the student nurse to help with her care on 09/15/18.
--- NOTE | 2018-09-14 16:30 | NUR ---
PATIENT REPORTS ITCHING OF SHINS AND BUTTOCKS, REQUESTS ATTENDS AND PAS BE REMOVED AND BENADRLY APPLIED. PATIENT REQUESTED ICE PACKS PLACED BEHIND SHOULDER BLADES AND BUTTOCKS. SLIGHT REDNESS NOTED TO THORACIC AREA WHERE PATIENT ITCHES.
--- NOTE | 2018-09-14 18:40 | NUR ---
SUMMARY PATIENT MEDICATED FOR ABD PAIN AND NAUSEA WITH GOOD RELIEF. PATIENT DECLINES PAS DUE TO ITCHING, PADDED PAS AND PATIENT TELLS ME THEY ARE STIL ITCHING. NG WITH GREEN/BROWN DRAINAGE
[2018-09-15 04:13] LABS: BASOPHILS ABSOLUTE AUTO 0.03 K/mm3 (0.00-0.23); BASOPHILS PERCENT AUTO 1 % (0-2); EOSINOPHILS ABSOLUTE AUTO 0.16 K/mm3 (0.00-0.68); EOSINOPHILS PERCENT AUTO 3 % (0-6); Hematocrit 35.9 % (33.0-51.0); Hemoglobin 11.7 g/dL (11.5-16.0); IMMATURE GRAN ABSOLUTE AUTO 0.01 K/mm3 (0.00-0.10); IMMATURE GRAN PERCENT AUTO 0 % (0-1); LYMPHOCYTES ABSOLUTE AUTO 0.85 K/mm3 (0.84-5.20); LYMPHOCYTES PERCENT AUTO 18 % (21-46); MONOCYTES ABSOLUTE AUTO 0.45 K/mm3 (0.16-1.47); MONOCYTES PERCENT AUTO 10 % (4-13); Mean Corpuscular HGB 33.1 pg (26.0-34.0); Mean Corpuscular HGB Conc 32.6 g/dL (31.5-36.5); Mean Corpuscular Volume 101 fL (80-100); Mean Platelet Volume 9.8 fL (9.1-12.4); NEUTROPHILS ABSOLUTE AUTO 3.16 K/mm3 (1.96-9.15); NEUTROPHILS PERCENT AUTO 68 % (41-73); Platelet Count 220 K/mm3 (150-400); RDW Coefficient Variation 13.2 % (11.7-14.2); RDW Standard Deviation 49.5 fL (35.1-46.3); Red Blood Cell Count 3.54 M/mm3 (3.80-5.20); White Blood Cell Count 4.66 K/mm3 (4.00-11.30)
[2018-09-15 04:33] LABS: Bun/Creatinine Ratio 21.1 (12.0-20.0); Calcium, Blood 8.3 mg/dL (8.5-10.1); Creatinine, Blood 0.95 mg/dL (0.40-1.00); Potassium, Blood 3.7 mmol/L (3.5-5.5)
--- NOTE | 2018-09-15 04:34 | NUR ---
SHIFT SUMMARY: PT POD #3 FOR ILEOSTOMY REVERSAL. NG TUBE DRAINING BROWN-GREEN LIQ. PT DENIES N/V THROUGHOUT SHIFT. C/O MUCOUS AND FEELING SOME HEARTBURN. ABD MODERATLY DISTENDED WITH HYPOACTIVE BT. GIVEN 0.5 MG OF DILAUDID FOR PAIN PER EMAR. JORJE ICE CHIPS. PT REPORTS PASSING SOME GAS. NO BM. USING BEDPAN PRN.
--- NOTE | 2018-09-15 11:34 | NUR ---
THE PT. HAS BEEN EXERIECING N/V IN EARLY AM. THE PT. STATES PAIN LEVEL 8 OUT OF 10. PT WAS MEDICATED WITH DILAUDID AND REEVALUATED WITH PAIN AND WAS RESTING. THE PT. WAS GIVEN ZOFRAN PER ORDER NEEDED TO RELIEVE N/V. PT. STATES SHE NOW FEELS LESS NAUSEA BUT STILL DOES NOT WANT TO EAT AT THIS TIME. THE PT. IS SITTING UP AND EATING ICE CHIPS TOLERATED. WILL CONTINUE TO MONITOR FOR ANY CHANGES.
--- NOTE | 2018-09-15 17:42 | NUR ---
PT HAS BEEN COMPLAINING OF EPIGASTRIC PAIN T/O THE DAY. THIS AFTERNOON AT APPROXIMATELY 1630 SHE STARTED TO COMPLAIN OF CHEST PAIN. DR. MURRAY WAS NOTIFIED. EKG AND LAB WORK COMPLETED, NORMAL AT THIS TIME. CHEST XRAY ORDERED. PT TO BE STARTED ON IV PROTONIX AND SPRAY ORDERED FOR SOAR THROAT. WILL CONTINUE TO MONITOR.
--- NOTE | 2018-09-15 19:31 | NUR ---
SHIFT SUMMARY PAIN HAS BEEN MANAGED WITH IV PAIN MEDICATION THIS SHIFT. PT COMPLAINED OF EPIGASTRIC PAIN AND PROTONIX WAS STARTED THIS SHIFT. PT REPORTED SOME FLATUS AND BOWEL SOUNDS ARE HYPERACTIVE. VSS. REPORT GIVEN TO MARIBEL COX.
--- NOTE | 2018-09-15 20:23 | NUR ---
NG TUBE ADVANCED 10 CM PER ORDERS. NG TO LOW INT SUCTION PER ORDERS. PT TOLERATED WELL.
[2018-09-16 04:38] LABS: BASOPHILS ABSOLUTE AUTO 0.03 K/mm3 (0.00-0.23); BASOPHILS PERCENT AUTO 1 % (0-2); EOSINOPHILS ABSOLUTE AUTO 0.17 K/mm3 (0.00-0.68); EOSINOPHILS PERCENT AUTO 3 % (0-6); Hematocrit 35.1 % (33.0-51.0); Hemoglobin 11.5 g/dL (11.5-16.0); IMMATURE GRAN ABSOLUTE AUTO 0.01 K/mm3 (0.00-0.10); IMMATURE GRAN PERCENT AUTO 0 % (0-1); LYMPHOCYTES PERCENT AUTO 22 % (21-46); MONOCYTES ABSOLUTE AUTO 0.68 K/mm3 (0.16-1.47); MONOCYTES PERCENT AUTO 12 % (4-13); Mean Corpuscular HGB 33.1 pg (26.0-34.0); Mean Corpuscular HGB Conc 32.8 g/dL (31.5-36.5); Mean Corpuscular Volume 101 fL (80-100); Mean Platelet Volume 10.2 fL (9.1-12.4); NEUTROPHILS ABSOLUTE AUTO 3.43 K/mm3 (1.96-9.15); NEUTROPHILS PERCENT AUTO 62 % (41-73); Platelet Count 218 K/mm3 (150-400); RDW Coefficient Variation 13.2 % (11.7-14.2); RDW Standard Deviation 49.2 fL (35.1-46.3); Red Blood Cell Count 3.47 M/mm3 (3.80-5.20); White Blood Cell Count 5.52 K/mm3 (4.00-11.30)
[2018-09-16 05:02] LABS: Anion Gap 11 mmol/L (6-16); Blood Urea Nitrogen 21 mg/dL (8-24); Bun/Creatinine Ratio 22.7 (12.0-20.0); CO2, Blood 28 mmol/L (21-32); Calcium, Blood 8.3 mg/dL (8.5-10.1); Chloride, Blood 108 mmol/L (98-108); Creatinine, Blood 0.93 mg/dL (0.40-1.00); Glomerular Filtration Rate >60 (60-); Glucose, Blood 73 mg/dL (70-99); Magnesium, Blood 2.3 mg/dL (1.6-2.4); Potassium, Blood 3.4 mmol/L (3.5-5.5); Sodium, Blood 147 mmol/L (136-145)
--- NOTE | 2018-09-16 07:34 | NUR ---
SHIFT SUMMARY PT A&O X4 T/O SHIFT. DAUGHTER AT BEDSIDE DURING EVENING. PT REPOSITIONED TOLERATED T/O SHIFT. POD#4 OSTOMY TAKE DOWN. DRESSING CDI. ABD SOFT, BT X4; MILD DISTENTION, NAUSEA TREATED X1. NG TO LOW INT SUCTION, ADVANCED PER ORDERS (SEE NOTE); FLUSHED X1, PATENT. FLATUS AND STOOL PASSED X1. PT UP TO BSC WITH SBA, GAITBELT AND FWW. RA; DENIES SOB AND CP. PT DECLINED SCD;S AND MEPILEX D/T CONCERNS FOR SKIN IRRITATION. PAIN MANGED PER EMAR. CALL LIGHT IN REACH; PT DEMONSTRATES USE. PT DECLINED BEDSIDE REPORT. REPORT GIVEN TO DAY SHIFT RN.
--- NOTE | 2018-09-16 15:40 | NUR ---
NG TUBE DR. BAKER NOTIFIED THAT THE PT HAS NOT PASSED FLATUS SINCE LAST EVENING DESPITE THE FACT THAT SHE REPORTED TO DR. MURRAY THAT SHE HAD PASSED FLATUS. SHE HAS BEEN TOLERATING ICE CHIPS HOWEVER SHE REPORTED SHE "SPIT UP" A MOUTHFULL OF FLUID; PT DENIED NAUSEA. DR. BAKER NOTIFIED. DR. BAKER SAID TO CONTINUE WITH NG TUBE REMOVAL. NG TUBE WAS REMOVED AT 1542. PT TOLERATED WELL. WILL CONTINUE TO MONITOR.
--- NOTE | 2018-09-16 19:48 | NUR ---
SHIFT SUMMARY NG TUBE OUT TODAY. PT HAS DENIED N/V AND IS TOLERATING ICE CHIPS. PT HAS BEEN AMBULATING IN THE [place] WITH 1 PERSON ASSIST. PAIN HAS BEEN MINIMAL. VSS. REPORT GIVEN TO MARIBEL COX.
[2018-09-17 06:15] LABS: Bun/Creatinine Ratio 20.2 (12.0-20.0); Calcium, Blood 7.9 mg/dL (8.5-10.1); Creatinine, Blood 0.94 mg/dL (0.40-1.00); Potassium, Blood 3.4 mmol/L (3.5-5.5)
--- NOTE | 2018-09-17 07:54 | NUR ---
SHIFT SUMMARY PT A&O X4 T/O SHIFT. NO ACUTE CHANGES. POD#5 OSTOMY TAKE DOWN. DRESSING TO ABD REMOVED AND WET TO DRY PER ORDERS PLACED. ABD SOFT; BT X4; LOOSE STOOLS X2 ON BSC; ONE ASSIT AND FWW. PT TAKING ICE CHIPS. PT DENIES NAUSEA AND DENIED PAIN/NEED FOR PAIN MEDICATION T/O SHIFT. RED IRRITATED SKIN TO BUTTOCKS. EGG CRATE TO BED TOP. PT ABLE TO REPOSITION IN BED, ASSISTED/PROMPTED T/O SHIFT. RA; PT DENIES SOB AND CP. PT STS SHE SELPT VERY WELL DURING NIGHT. DAUGHTER AT BEDSIDE DURING EVENING AND AGAIN THIS AM. CALL LIGHT IN REACH; PT DEMONSTRATE USE. REPORT GIVEN TO DAY SHIFT RN.
--- NOTE | 2018-09-17 16:33 | NUR ---
SUMMARY DR OLMSTEAD IN TO SEE PT THIS AM, CHANGE ABD DRSG, ORDER DIET ADV TO FL. SHE STATE NEW ALLERGIES TO MANY FOODS, AIRLINE RESERVATION AGENT IN TO SEE PT & DAUGHTER TO REVIEW MENU & CHOOSE APPROPRIATE DIET. PT HAS BEEN UP IN [place] AMBULATING WITH SBA FWW, GAIT STEADY. SHE STATE NO PAIN TODAY, NO NAUSEA. VS SEEM STABLE W HR SOMEWHAT REBEKA 50'S, APPEARS BASELINE. SHE HAD LOW GRADE TEMP 99.1, DAUGHTER STATE THIS IS ELEVATED FOR PT, PRN TYLENOL GIVEN. DR CHUNG IVF'S TODAY, IV SITE SL.
--- NOTE | 2018-09-18 07:54 | NUR ---
SHIFT SUMMARY PT A&O X4 T/O SHIFT. POD#6 ILEOSTOMY TAKE DOWN; DRESSING CHANGE PER ORDERS. SCANT DRAINAGE ON DRESSING. ABD SOFT; BTX4; PT PASSING GAS AND LOOSE STOOL. PT DENIES NAUSEA. PAIN MANGED PER EMAR. PT BED MOBILE; REPOSITIONS SELF IN BED. PT UP TO BSC WITH FWW AND SBA. PT AMBULATED IN [place] X1. RA; PT DENIED SOB AND CP T/O SHIFT. CALL LIGHT IN REACH; PT DEMONSTRATES USE. REPORT GIVEN TO DAY SHIFT RN.
--- NOTE | 2018-09-18 16:24 | NUR ---
PT HAS BEEN DOING VERY WELL TODAY. SHE IS BRIGHT AND CHEERFUL WITH A POSITIVE ATTITUDE. PT HAS BEEN ABLE TO WALK IN THE HALLWAYS MULTIPLE TIMES WITH MINIMAL ASSIST. PT IS TOLERATING A SOFT DIET WITH NO PROBLEMS. SHE CONTINUES TO PASS FLATUS AND STOOL. VOIDING WNL. DRSG REMAINS C/D/I. BOWEL TONES ACTIVE X4. DENIES NAUSEA. PT CALLS FOR ASSISTANCE NEEDED. CALL LIGHT IN REACH. [facility]
--- NOTE | 2018-09-19 06:48 | NUR ---
SHIFT SUMMARY PT A&O X 4 T/O SHIFT. POD#7 ILEOSTOMY TAKE DOWN; DRESSING CHANGED PER ORDERS. ABD SOFT; BTX4; PT DENIES NAUSEA AND ABD PAIN. BM AND FLATUS PASSED. TOLERATING DIET WELL. UP WITH FWW AND SBA. "EGG CRATE" TO BED; PT REPOSITIONS SELF IN BED. MEDICATED FOR ITCHING X1. VISITOR AT BEDSIDE DURING EVENING. CALL LIGHT IN REACH; PT DEMONSTRATES USE. WCTM UNTIL REPORT TO DAY SHIFT RN.
--- NOTE | 2018-09-19 14:32 | NUR ---
LATE ENTRY MADRIGAL WAS DC'D UPON ARRIVAL IN PACU WITHOUT ANY DIFFICULTY CLEAR YELLOW URINE
--- NOTE | 2018-09-19 14:50 | NUR ---
DISCHARGE PT AND FAMILY WAS PROVIDED WITH WRITTEN AND VERBAL DISCHARGE INSTRUCTIONS. THEY REPORTED UNDERSTANDING AFTER QUESTIONS WERE ANSWERED. PT'S DAUGHTER WAS EDUCATED TO CHANGE PT'S DRESSING, SHE DEMONSTRATED UNDERSTANDING. PT WAS ESCORTED OUT IN W/C BY LUCA RASHID.
== END 2018-09-19 14:45 | disposition home health service (06) | DRG 330 ==
LOC: SURS 06:08 → PRE IP 07:30 → SURS 11:01
PROVIDERS: ADMIT Surgery
PROC: 0DQB0ZZ Repair Ileum, Open Approach (ICD-10-PCS; principal; 2018-09-12 07:30)
PROC: 0D9670Z Drainage of Stomach with Drainage Device, Via Natural or Artificial Opening (ICD-10-PCS; 2018-09-13)
DX: Z43.2 Encounter for attention to ileostomy (principal); K56.7 Ileus, unspecified; K91.89 Other postprocedural complications and disorders of digestive system; Z93.2 Ileostomy status; R54 Age-related physical debility; K21.9 Gastro-esophageal reflux disease without esophagitis; I10 Essential (primary) hypertension; G47.33 Obstructive sleep apnea (adult) (pediatric); E03.9 Hypothyroidism, unspecified; Z87.891 Personal history of nicotine dependence; Z88.6 Allergy status to analgesic agent; Z88.1 Allergy status to other antibiotic agents; Z91.040 Latex allergy status; Z91.011 Allergy to milk products; Z88.0 Allergy status to penicillin; Z91.013 Allergy to seafood; Z88.2 Allergy status to sulfonamides; Z88.8 Allergy status to other drugs, medicaments and biological substances; Z91.018 Allergy to other foods; Z86.73 Personal history of transient ischemic attack (TIA), and cerebral infarction without residual deficits
CPT/HCPCS: 36415; 71045; 80048; 83735; 84100; 84484; 85025; 88304; 93005; 93010; 97110; 97116; 97162; 97166; 97530; C9113; J1170; J1200; J1335; J1650; J2370; J2405; J2710; J3010; J3480; J7120; Q0163

== ENCOUNTER 2018-09-27 11:07 | Emergency (ER) | payer OTHER ==
[~2018-09-27] VITALS: Ht 160 cm; Wt 69.8 kg
== END 2018-09-27 13:11 | disposition home or self-care (01) ==
LOC: ER 11:07
DX: R60.0 Localized edema (principal); Z88.8 Allergy status to other drugs, medicaments and biological substances; Z88.0 Allergy status to penicillin; Z88.2 Allergy status to sulfonamides; Z88.1 Allergy status to other antibiotic agents; Z91.013 Allergy to seafood; Z91.018 Allergy to other foods; Z91.011 Allergy to milk products; Z91.02 Food additives allergy status; Z88.6 Allergy status to analgesic agent; Z91.040 Latex allergy status; Z88.5 Allergy status to narcotic agent; Z79.899 Other long term (current) drug therapy; I10 Essential (primary) hypertension; Z87.891 Personal history of nicotine dependence
CPT/HCPCS: 93971

== ENCOUNTER 2019-01-29 14:42 | Emergency (ER) | payer OTHER ==
[~2019-01-29] VITALS: Ht 160 cm; Wt 64.9 kg
[~2019-01-29 14:42] MED LIST changes: +ALBU90OI PO
[2019-01-29] MEDS ORDERED: ACET500 PO (16:41)
== END 2019-01-29 16:49 | disposition home or self-care (01) ==
LOC: ER 14:42
DX: S09.90XA Unspecified injury of head, initial encounter (principal); S80.01XA Contusion of right knee, initial encounter; S60.211A Contusion of right wrist, initial encounter; W01.198A Fall on same level from slipping, tripping and stumbling with subsequent striking against other object, initial encounter; Z88.8 Allergy status to other drugs, medicaments and biological substances; Z88.0 Allergy status to penicillin; Z88.2 Allergy status to sulfonamides; Z88.1 Allergy status to other antibiotic agents; Z88.6 Allergy status to analgesic agent; Z91.040 Latex allergy status; Z91.011 Allergy to milk products; Z91.018 Allergy to other foods; Z79.899 Other long term (current) drug therapy; I10 Essential (primary) hypertension; Z87.891 Personal history of nicotine dependence
CPT/HCPCS: 70450; 73110; 73130; 73562-RT; 99284-25

== ENCOUNTER 2019-02-10 12:32 | Emergency (ER) | payer OTHER ==
[~2019-02-10] VITALS: Ht 160 cm; Wt 65.8 kg
[~2019-02-10 12:32] MED LIST changes: +ACET500 PO
[2019-02-10 12:57] LABS: Source, Urine Clean Catch
[2019-02-10 13:00] LABS: Appearance, Urine Clear (Clear); Bilirubin, Urine Neg (Neg); Blood, Urine Neg (Neg); Color, Urine Yellow (P-Yellow); Glucose Qualitative, Urine Neg (Neg); Ketones, Urine Neg (Neg); Leukocyte Esterase, Urine Neg (Neg); Nitrite, Urine Neg (Neg); Protein, Urine Neg (Neg); Specific Gravity, Urine 1.005 (1.003-1.022); Urobilinogen, Urine NORM (Normal)
[2019-02-10] MEDS ORDERED: PRAM.5 PO (13:02)
[2019-02-10] MEDS ORDERED: ONDA4ODT MM (13:02)
[2019-02-10] MEDS ORDERED: Pataday2.5 ML BOTHEYES (13:03)
[2019-02-10 13:04] LABS: BASOPHILS ABSOLUTE AUTO 0.05 K/mm3 (0.00-0.23); BASOPHILS PERCENT AUTO 1 % (0-2); EOSINOPHILS PERCENT AUTO 2 % (0-6); Hematocrit 33.1 % (33.0-51.0); Hemoglobin 11.2 g/dL (11.5-16.0); IMMATURE GRAN ABSOLUTE AUTO 0.01 K/mm3 (0.00-0.10); IMMATURE GRAN PERCENT AUTO 0 % (0-1); LYMPHOCYTES ABSOLUTE AUTO 2.61 K/mm3 (0.84-5.20); LYMPHOCYTES PERCENT AUTO 57 % (21-46); MONOCYTES ABSOLUTE AUTO 0.39 K/mm3 (0.16-1.47); MONOCYTES PERCENT AUTO 9 % (4-13); Mean Corpuscular HGB 34.8 pg (26.0-34.0); Mean Corpuscular HGB Conc 33.8 g/dL (31.5-36.5); Mean Corpuscular Volume 103 fL (80-100); Mean Platelet Volume 10.6 fL (9.1-12.4); NEUTROPHILS ABSOLUTE AUTO 1.44 K/mm3 (1.96-9.15); NEUTROPHILS PERCENT AUTO 31 % (41-73); Platelet Count 214 K/mm3 (150-400); RDW Coefficient Variation 14.2 % (11.7-14.2); Red Blood Cell Count 3.22 M/mm3 (3.80-5.20)
[2019-02-10] MEDS ORDERED: Norco 5-325 Ta1 EACH PO (13:04)
[2019-02-10 13:27] LABS: Albumin, Blood 3.7 g/dL (3.4-5.0); Albumin/Globulin Ratio 1.2 (0.8-1.8); Bilirubin, Total 0.7 mg/dL (0.1-1.0); Bun/Creatinine Ratio 18.4 (12.0-20.0); Calcium, Blood 8.7 mg/dL (8.5-10.1); Creatinine, Blood 0.98 mg/dL (0.40-1.00); Globulin, Blood 3.2 g/dL (2.2-4.0); Potassium, Blood 3.5 mmol/L (3.5-5.5); Total Protein, Blood 6.9 g/dL (6.4-8.2)
== END 2019-02-10 15:20 | disposition home or self-care (01) ==
LOC: ER 12:32
PROVIDERS: Emergency Medicine
DX: R10.9 Unspecified abdominal pain (principal); I10 Essential (primary) hypertension; Z88.0 Allergy status to penicillin; Z88.1 Allergy status to other antibiotic agents; Z88.2 Allergy status to sulfonamides; Z88.6 Allergy status to analgesic agent; Z91.040 Latex allergy status; Z91.013 Allergy to seafood; Z88.8 Allergy status to other drugs, medicaments and biological substances; Z91.011 Allergy to milk products; Z91.018 Allergy to other foods; Z79.899 Other long term (current) drug therapy; Z87.891 Personal history of nicotine dependence
CPT/HCPCS: 80053; 81003; 83690; 85025; 96360; 99284-25; J7030

== ENCOUNTER → 2019-04-11 | Outpatient (CLI) | payer OTHER ==
[2019-04-11 13:10] LABS: Source, Urine Catheter
[2019-04-11 13:16] LABS: Bilirubin, Urine Neg (Neg); Blood, Urine Neg (Neg); Glucose Qualitative, Urine Neg (Neg); Ketones, Urine Neg (Neg); Leukocyte Esterase, Urine Neg (Neg); Nitrite, Urine Neg (Neg); Protein, Urine Neg (Neg); Urobilinogen, Urine NORM (Normal)
[2019-04-11 13:40] LABS: Appearance, Urine Clear (Clear); Color, Urine Yellow (P-Yellow)
[2019-04-12 15:07] LABS: HPV 16 Negative (Negative); HPV 18 Negative (Negative); HPV OTHER HR TYPES Negative (Negative)
== END | disposition home or self-care (01) ==
LOC: LAB SHORT 12:31 → LAB 12:31
PROVIDERS: Nurse Practitioner Women's Health
DX: Z12.72 Encounter for screening for malignant neoplasm of vagina (principal); K62.3 Rectal prolapse; N95.2 Postmenopausal atrophic vaginitis; R63.4 Abnormal weight loss
CPT/HCPCS: 81003; 87624; G0123

== ENCOUNTER → 2019-04-14 | Outpatient (CLI) | payer OTHER ==
[2019-04-15 14:28] LABS: Stool Occult Bld Immuno 1 Positive (NEGATIVE)
== END | disposition home or self-care (01) ==
LOC: LAB SHORT 15:23 → LAB 15:23 → LAB FUT 04-04 11:45
PROVIDERS: Internal Medicine
DX: R53.81 Other malaise (principal); I10 Essential (primary) hypertension
CPT/HCPCS: 82274

== ENCOUNTER 2019-06-14 07:21 | Day surgery (SDC) | payer OTHER ==
[~2019-06-14] VITALS: Ht 160 cm; Wt 56.5 kg
[~2019-06-14 07:21] MED LIST changes: +DOXE10; +Estrace Vagin42.5 GM; +Ipratropium Bro30 ML; +PROP10
--- NOTE | 2019-06-14 08:04 | NUR ---
06/14/19 0804 Veronica Alexander 1 IV MISS IN RW BY AURELIO VALVE 1 IV MISS IN RAC BY VALVE 1 IV MISSIN LAC BY KENNY VALVE 1 GOOD IV IN LW BY RN PT TOW
== END 2019-06-14 09:31 | disposition home or self-care (01) ==
LOC: ORSCSDS 07:21
PROVIDERS: Internal Medicine Gastroenterology
PROC: 0DB68ZX Excision of Stomach, Via Natural or Artificial Opening Endoscopic, Diagnostic (ICD-10-PCS; principal; 2019-06-14 08:30)
PROC: 0DJD8ZZ Inspection of Lower Intestinal Tract, Via Natural or Artificial Opening Endoscopic (ICD-10-PCS; principal; 2019-06-14 08:30)
PROC: 0DB48ZX Excision of Esophagogastric Junction, Via Natural or Artificial Opening Endoscopic, Diagnostic (ICD-10-PCS; principal; 2019-06-14 08:30)
DX: K21.9 Gastro-esophageal reflux disease without esophagitis (principal); R63.4 Abnormal weight loss; K92.1 Melena; R19.7 Diarrhea, unspecified; K29.70 Gastritis, unspecified, without bleeding; K57.30 Diverticulosis of large intestine without perforation or abscess without bleeding; K64.1 Second degree hemorrhoids; G47.33 Obstructive sleep apnea (adult) (pediatric); E03.9 Hypothyroidism, unspecified; I10 Essential (primary) hypertension; J45.909 Unspecified asthma, uncomplicated; Z87.891 Personal history of nicotine dependence; D53.9 Nutritional anemia, unspecified; N28.9 Disorder of kidney and ureter, unspecified; Z79.899 Other long term (current) drug therapy
CPT/HCPCS: 88305; 88342; J0330; J0461; J2405; J2704; J7120

== ENCOUNTER 2019-10-23 21:06 | Emergency (ER) | payer OTHER ==
[~2019-10-23] VITALS: Ht 160 cm; Wt 57.1 kg
[2019-10-23] MEDS ORDERED: Vibramycin100 MG PO (22:06)
== END 2019-10-23 23:04 | disposition home or self-care (01) ==
LOC: ER 21:06
DX: K20.9 Esophagitis, unspecified (principal); I10 Essential (primary) hypertension; Z88.0 Allergy status to penicillin; Z88.1 Allergy status to other antibiotic agents; Z88.2 Allergy status to sulfonamides; Z88.6 Allergy status to analgesic agent; Z88.8 Allergy status to other drugs, medicaments and biological substances; Z91.040 Latex allergy status; Z91.011 Allergy to milk products; Z91.018 Allergy to other foods; Z79.899 Other long term (current) drug therapy; Z87.891 Personal history of nicotine dependence
CPT/HCPCS: 71045; 93005; 93010; 99284-25; Q0163

== ENCOUNTER 2019-11-28 18:13 | Emergency (ER) | payer OTHER ==
[~2019-11-28] VITALS: Ht 160 cm; Wt 57.6 kg
[~2019-11-28 18:13] MED LIST changes: +Vibramycin100 MG PO
[2019-11-28] MEDS ORDERED: Indapamide2.5 MG PO (18:57)
[2019-11-28] MEDS ORDERED: LISI5 PO (18:57)
[2019-11-28] MEDS ORDERED: MOMENI (18:58)
[2019-11-28] MEDS ORDERED: Bentyl10 MG PO (18:59)
[2019-11-28] MEDS ORDERED: Ropinirole HCl0.5 MG PO (18:59)
[2019-11-28] MEDS ORDERED: ZYRTEC10 M2 PO (19:00)
[2019-11-28] MEDS ORDERED: METAMUCIL660 GM PO (19:00)
[2019-11-28] MEDS ORDERED: B Complex-Foli1 EACH PO (19:01)
[2019-11-29] MEDS ORDERED: PROP10 (00:44)
== END 2019-11-28 19:36 | disposition home or self-care (01) ==
LOC: ER 18:13
DX: R07.9 Chest pain, unspecified (principal); I10 Essential (primary) hypertension; Z88.1 Allergy status to other antibiotic agents; Z88.0 Allergy status to penicillin; Z88.2 Allergy status to sulfonamides; Z88.6 Allergy status to analgesic agent; Z91.040 Latex allergy status; Z88.8 Allergy status to other drugs, medicaments and biological substances; Z91.011 Allergy to milk products; Z91.018 Allergy to other foods; Z91.013 Allergy to seafood; Z79.899 Other long term (current) drug therapy; Z87.891 Personal history of nicotine dependence
CPT/HCPCS: 71045; 93005; 93010; 99284-25

== ENCOUNTER 2019-11-29 00:15 | Emergency (ER) | payer OTHER ==
[~2019-11-29] VITALS: Ht 160 cm; Wt 57.6 kg
[~2019-11-29 00:15] MED LIST changes: +B Complex-Foli1 EACH PO; +Bentyl10 MG PO; +METAMUCIL660 GM PO; +Ropinirole HCl0.5 MG PO; +ZYRTEC10 M2 PO
[2019-11-29] MEDS ORDERED: PROP10 (00:44)
== END 2019-11-29 02:49 | disposition home or self-care (01) ==
LOC: ER 00:15
DX: R10.13 Epigastric pain (principal); T36.8X5A Adverse effect of other systemic antibiotics, initial encounter; I10 Essential (primary) hypertension; Z88.1 Allergy status to other antibiotic agents; Z88.0 Allergy status to penicillin; Z88.2 Allergy status to sulfonamides; Z88.6 Allergy status to analgesic agent; Z91.040 Latex allergy status; Z91.013 Allergy to seafood; Z91.018 Allergy to other foods; Z91.011 Allergy to milk products; Z79.899 Other long term (current) drug therapy; Z87.891 Personal history of nicotine dependence
CPT/HCPCS: 93005; 93010; 99283-25

== ENCOUNTER 2020-12-16 12:54 | Day surgery (SDC) | payer OTHER ==
[~2020-12-16] VITALS: Ht 157.5 cm; Wt 58.4 kg
--- NOTE | 2020-12-16 16:18 | NUR ---
12/16/20 1618 Yudith Burnett DURING PROCEDURE WHILE TAKING BIOPSIES, PT. WITH APPROX.3 SEC. PAUSE, DR. SINCLAIR REMOVED SCOPE. ORSC.NSC FELT RADIAL AREA FOR A PULSE WITH NO PULSE, THEN PT. HEART STARTED BEATING AGAIN. PROCEDURE STOPPED AT THAT TIME. PT. WOKE UP WITHOUT ANY PAIN OR PROBLEMS.
== END 2020-12-16 16:00 | disposition home or self-care (01) ==
LOC: ORSCSDS 12:54
PROVIDERS: Internal Medicine Gastroenterology
PROC: 0DB58ZX Excision of Esophagus, Via Natural or Artificial Opening Endoscopic, Diagnostic (ICD-10-PCS; principal; 2020-12-16 14:00)
DX: R13.10 Dysphagia, unspecified (principal); K21.9 Gastro-esophageal reflux disease without esophagitis; I10 Essential (primary) hypertension; E03.9 Hypothyroidism, unspecified; Z86.73 Personal history of transient ischemic attack (TIA), and cerebral infarction without residual deficits; E11.9 Type 2 diabetes mellitus without complications; Z79.899 Other long term (current) drug therapy; Z87.891 Personal history of nicotine dependence
CPT/HCPCS: 88305; J2704; J7120